=== PATIENT | female | born 1950 | race Caucasian/White ===

== ENCOUNTER 2017-09-04 13:11 | Inpatient (IN) | payer OTHER ==
[~2017-09-04] VITALS: Ht 165.1 cm; Wt 61.8 kg
[2017-09-04] MEDS ORDERED: SPIRIVA18 MCG INH (13:37)
[2017-09-04] MEDS ORDERED: ASMANEX220 MC2 (13:37)
[2017-09-04] MEDS ORDERED: LEVOTHYROXINE25 MCG PO (13:37)
--- NOTE | 2017-09-04 13:41 | ED DYSPNEA/ASTHMA COMPLAINT ---
History of Present Illness General Chief Complaint: Dyspnea (COPD, CHF, Other) Stated Complaint: SOB/LOWER EXTREMITY EDEMA Source: patient, family, old records Exam Limitations: no limitations Vital Signs & Intake/Output Vital Signs & Intake/Output Vital Signs Date Time Temp Pulse Resp B/P B/P Pulse O2 O2 Flow FiO2 Mean Ox Delivery Rate 09/04 1448 95 Nasal 3.0L Cannula 09/04 1338 96 26 96 Nasal 3.0L Cannula 09/04 1321 97.6 105 18 136/82 80 Room Air Allergies Coded Allergies: NO KNOWN ALLERGIES (09/13/11) Reconcile Medications Levothyroxine Sodium 25 MCG TABLET 1 TAB PO DAILY HYPOTHYROID (Reported) Mometasone Furoate (Asmanex) 220 MCG (60 DOSES) AER.POW.BA COPD (Reported) Tiotropium [place] (Spiriva) 18 MCG CAP.W.DEV 1 CAP INH DAILY COPD (Reported) Triage Note: 67 Y/O FEMALE C/O SOB AND BILATERAL LOWER EXTREMITY EDEMA SINCE LAST NIGHT. PT STATES SHE RECENTLY "GOT OVER FLU/PNEUMONIA BUT I BEGAN TO FEEL SLUGGISH AGAIN TUESDAY". STATES "I STARTED FILLING UP WITH FLUID LAST NIGHT". PT DENIES PAIN. REPORTS HX COPD AND IS SUPPOSED TO BE ON HOME 02 AT 2L - "MY DOCTOR PROBABLY WANTS ME ON IT ALL THE TIME". RA SAT 80% IN TRIAGE - PT DID NOT ARRIVE WITH HOME O2. TAKEN TO ROOM 7 FOR EVAL/TX. Triage Nurses Notes Reviewed? yes HPI: Patient presents with increasing shortness of breath, dyspnea on exertion and nonproductive cough. Patient also has pain to her left lower rib cage when she coughs. The pain is sharp. There is no pain when she is not coughing. There is no radiation of the pain. When she has the pain it is 8 out of 10. Patient is also noticed that both of her ankles have been swollen for the past 2 days. Patient does not know about orthopnea since she sleeps in a recliner. Patient is supposed to be on oxygen all the time but does not like to wear. Past History Travel History Traveled to [place] past 21 day No Medical History Any Pertinent Medical History? 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 No Review of Systems Review of Systems Constitutional: Reports: no symptoms. EENTM: Reports: no symptoms. Respiratory: Reports: see HPI, cough, short of breath, sputum production. Cardiovascular: Reports: see HPI, chest pain. GI: Reports: no symptoms. Genitourinary: Reports: no symptoms. Musculoskeletal: Reports: no symptoms. Skin: Reports: no symptoms. Neurological/Psychological: Reports: no symptoms. Hematologic/Endocrine: Reports: no symptoms. Immunologic/Allergic: Reports: no symptoms. All Other Systems: Reviewed and Negative Physical Exam Physical Exam General Appearance: well developed/nourished, alert, awake, anxious, moderate distress Head: atraumatic, normal appearance Eyes: Bilateral: PERRL, EOMI. Ears, Nose, Throat: normal pharynx, normal ENT inspection, hearing grossly normal Neck: normal inspection, supple, full range of motion Respiratory: decreased breath sounds, rhonchi Cardiovascular: regular rate/rhythm, normal peripheral pulses Gastrointestinal: normal bowel sounds, soft, non-tender Extremities: normal inspection, normal capillary refill, normal range of motion, pedal edema (TRACE) Neurologic/Psych: no motor/sensory deficits, awake, alert, oriented x 3, normal mood/affect Skin: intact, normal color, warm/dry Lymphatic: no anterior cervical lorena Core Measures ACS in differential dx? No CVA/TIA Diagnosis No Sepsis Present: No Sepsis Focused Exam Completed? No Progress Differential Diagnosis: AMI, bronchitis, CHF, COPD, pneumonia, pneumothorax Plan of Care: Orders Procedure Date/time Status Heart Healthy Diet 09/04 D Active XRY-PORTABLE CHEST XRAY 09/04 1458 Active US-COMPLETE ABDOMEN 09/04 1457 Active ARTERIAL BLOOD GAS (GEN) 09/04 1457 Active US-EXT BILAT VENOUS DOPPLER 09/04 1434 Active ED Holding Orders 09/04 1434 Active Admit to inpatient 09/04 1434 Active Vital Signs 09/04 1434 Active Code Status 09/04 1434 Active BLOOD CULTURE 09/04 1340 Active TROPONIN LEVEL 09/04 1316 Complete COMPREHENSIVE METABOLIC PANEL 09/04 1316 Complete CBC WITHOUT DIFFERENTIAL 09/04 131 Complete B-TYPE NATRIURETIC PEP (BNP) 09/04 1316 Complete EKG 09/04 1313 Active Current Medications Sig/Renee Start time Last Medication Dose Stop Time Status Admin Azithromycin 500 MG ONCE ONE 09/04 1445 AC (Zithromax) 09/04 1544 Dextrose/Water 250 ML (D5W) Laboratory Tests 09/04/17 1351: Anion Gap 7, Estimated GFR > 60, BUN/Creatinine Ratio 24.0, Glucose 82, Calcium 9.6, Total Bilirubin 0.9, AST 36, ALT 83 H, Alkaline Phosphatase 55, Troponin I < 0.01, Tor-H-Qtkbnhzabkv Pept 311 H, Total Protein 6.1 L, Albumin 3.5, Globulin 2.6, Albumin/Globulin Ratio 1.3, CBC w Diff NO MAN DIFF REQ, RBC 5.01, MCV 100.0 H, MCH 31.6 H, MCHC 31.6 L, RDW 15.4 H, MPV 9.5, Gran % 69.1, Lymphocytes % 19.6 L, Monocytes % 9.1, Eosinophils % 2.1, Basophils % 0.1, Absolute Granulocytes 4.4, Absolute Lymphocytes 1.3, Absolute Monocytes 0.6, Absolute Eosinophils 0.1, Absolute Basophils 0 Microbiology 09/04 135 BLOOD: Blood Culture - RECD 09/05 1339 BLOOD: Blood Culture - ORD Diagnostic Imaging: Viewed by Me: Radiology Read, Ultrasound. Discussed w/RAD: Radiology Read, Ultrasound. Initial ED EKG: NSR, LAFB Prior EKG: unchanged Rhythm Strip: normal sinus rhythm Departure Departure Disposition: STILL A PATIENT Condition: Stable Clinical Impression Primary Impression: COPD exacerbation Referrals: Gutierrez Holden ZABALA (PCP/Family) Departure Forms: Customer Survey General Discharge Information Admission Note Spoke With: Rene ZABALA,Alan Diaz Documentation of Exam: Documentation of any treatments & extenuating circumstances including Concerns Regarding Discharge (functional status, medication knowledge or non-compliance, living conditions, etc.) that warrant an admission rather than observation: [ PULM CONSULT, NEBS, IV STEROIDS, IV ABX, NEBS, ULTRASOUND] Critical Care Note Critical Care Note Critical Care Time: non-applicable
[2017-09-04 13:59] LABS: ABSOLUTE BASOPHIL COUNT 0 /CUMM (0.0-0.2); ABSOLUTE EOSINOPHIL COUNT 0.1 /CUMM (0.0-0.7); ABSOLUTE GRANULOCYTE CT 4.4 /CUMM (1.4-6.5); ABSOLUTE LYMPH COUNT 1.3 /CUMM (1.2-3.4); ABSOLUTE MONOCYTE COUNT 0.6 /CUMM (0.10-0.60); BASOPHIL % 0.1 % (0.0-2.0); EOSINOPHIL % 2.1 % (0-5); GRANULOCYTE % 69.1 % (42.2-75.2); HEMATOCRIT 50.1 % (37-47); MEAN CORPUSCULAR HGB 31.6 PG (27.0-31.0); MEAN CORPUSCULAR HGB CONC 31.6 G/DL (33.0-37.0); MEAN PLATELET VOLUME 9.5 FL (7.4-10.4); RBC DISTRIBUTION WIDTH 15.4 % (11.5-14.5); RED BLOOD CELL CT 5.01 /CUMM (4.20-5.40); WHITE BLOOD CELL COUNT 6.4 /CUMM (4.8-10.8)
--- NOTE | 2017-09-04 14:53 | PN- Att Addend ---
Attending Addendum Attending Brief Note Patient presents with increasing shortness of breath, dyspnea on exertion and nonproductive cough. Patient also has pain to her left lower rib cage when she coughs. The pain is sharp. There is no pain when she is not coughing. There is no radiation of the pain. When she has the pain it is 8 out of 10. Patient is also noticed that both of her ankles have been swollen for the past 2 days. Patient does not know about orthopnea since she sleeps in a recliner. Patient is supposed to be on oxygen all the time but does not like to wear. Has severe end-stage COPD with chronic hypercarbia. Unfortunately she does continue to smoke. She is supposed to be on 3 L of nasal cannula but she is noncompliant. She has yellow-green sputum and has been unable to bring up some sputum. She has lower extremity edema and she seems to have mild ascites as well as suggestive of significant right heart failure. No fever, but patient has been on and off steroids in the recent past. Past History Travel History Traveled to [place] past 21 day No Medical History Any Pertinent Medical History? 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 No Review of Systems Review of Systems Constitutional: Reports: no symptoms. EENTM: Reports: no symptoms. Respiratory: Reports: see HPI, cough, short of breath, sputum production. Cardiovascular: Reports: see HPI, chest pain. GI: Reports: no symptoms. Genitourinary: Reports: no symptoms. Musculoskeletal: Reports: no symptoms. Skin: Reports: no symptoms. Neurological/Psychological: Reports: no symptoms. Hematologic/Endocrine: Reports: no symptoms. Immunologic/Allergic: Reports: no symptoms. All Other Systems: Reviewed and Negative Physical Exam Physical Exam General Appearance: well developed/nourished, alert, awake, anxious, moderate distress Head: atraumatic, normal appearance Eyes: Bilateral: PERRL, EOMI. Ears, Nose, Throat: normal pharynx, normal ENT inspection, hearing grossly normal Neck: normal inspection, supple, full range of motion Respiratory: decreased breath sounds, rhonchi Cardiovascular: regular rate/rhythm, normal peripheral pulses Gastrointestinal: normal bowel sounds, soft, non-tender Extremities: normal inspection, normal capillary refill, normal range of motion, pedal edema (TRACE) Neurologic/Psych: no motor/sensory deficits, awake, alert, oriented x 3, normal mood/affect Skin: intact, normal color, warm/dry Lymphatic: no anterior cervical lorena Current Medications Sig/Renee Start time Last Medication Dose Route Stop Time Status Admin Azithromycin 500 MG ONCE ONE 09/04 144 UNVr Dextrose/Water 250 ML IV 09/04 1544 Ceftriaxone Sodium 1,000 MG ONCE ONE 09/04 144 AC IV 09/04 144 Methylprednisolone 125 MG ONCE ONE 09/04 144 UNVr IV 09/04 144 Vital Signs Date Time Temp Pulse Resp B/P B/P Pulse O2 O2 Flow FiO2 Mean Ox Delivery Rate 09/04 1338 96 26 96 Nasal 3.0L Cannula 09/04 1321 97.6 105 18 136/82 80 Room Air Laboratory Tests 09/04/17 1351: Anion Gap 7, Estimated GFR > 60, BUN/Creatinine Ratio 24.0, Glucose 82, Calcium 9.6, Total Bilirubin 0.9, AST 36, ALT 83 H, Alkaline Phosphatase 55, Troponin I < 0.01, Ecz-V-Ncxnhakmfas Pept 311 H, Total Protein 6.1 L, Albumin 3.5, Globulin 2.6, Albumin/Globulin Ratio 1.3, CBC w Diff NO MAN DIFF REQ, RBC 5.01, MCV 100.0 H, MCH 31.6 H, MCHC 31.6 L, RDW 15.4 H, MPV 9.5, Gran % 69.1, Lymphocytes % 19.6 L, Monocytes % 9.1, Eosinophils % 2.1, Basophils % 0.1, Absolute Granulocytes 4.4, Absolute Lymphocytes 1.3, Absolute Monocytes 0.6, Absolute Eosinophils 0.1, Absolute Basophils 0 Microbiology Date/Time Procedure - Status Source Growth 09/04 1350 Blood Culture - RECD BLOOD Orders Procedure Date/time Status Heart Healthy Diet 09/04 D Active US-EXT BILAT VENOUS DOPPLER 09/04 1434 Active ED Holding Orders 09/04 1434 Active Admit to inpatient 09/04 1434 Active Vital Signs 09/04 1434 Active Code Status 09/04 1434 Active BLOOD CULTURE 09/04 1340 Active TROPONIN LEVEL 09/04 1316 Complete COMPREHENSIVE METABOLIC PANEL 09/04 1316 Complete CBC WITHOUT DIFFERENTIAL 09/04 1316 Complete B-TYPE NATRIURETIC PEP (BNP) 09/04 1316 Complete EKG 09/04 1313 Active IMPRESSION This is a lady with very severe endstage COPD with chronic respiratory failure mainly hypercarbic with significantly elevated baseline bicarbonate with more emphysema than bronchitis, prior history of prolonged hospitalization with respiratory failure, ongoing smoking with marijuana use, history of previous alcohol use, medication noncompliance, now comes in with * Acute COPD exacerbation with chronic hypercarbic respiratory failure * Acute cor pulmonale on top of chronic cor pulmonale with pedal edema with right heart dysfunction, ascites * Ongoing smoking and previous history of marijuana use * Significant erythrocytosis related to prolonged hypoxemia due to noncompliance with oxygen therapy * Thrombocytopenia probably related to congestive liver from her cor pulmonale. She does have erythrocytosis which needs to be investigated * Previous history of lung nodule which had been followed for years with benign findings. Patient is not a candidate for screening CT due to end-stage COPD * Hypothyroidism on appropriate supplementation, anxiety, mild depression * COPD cachexia with high LUCRETIA score with poor prognosis RECOMMENDATION Admit to the hospital Intravenous steroids with 60 mg Solu-Medrol every 12 and subsequently reduced to 60 daily Ceftriaxone and azithromycin intravenously Chest x-ray and if abnormal will consider a chest ct Ultrasound of lower ext and abd EKG ABG IV lasix 20 mg and po kcl 40 meq now Rule out OR Urinary antigens Swab for flu Check tsh, free t4, folate, b12 level Prog guarded REduce oxygen to keep sat at 90 to 92 PRog guarded
--- NOTE | 2017-09-04 15:14 | History & Physical ---
Elle ZABALAAdair 09/04/17 1514: General Information and HPI History of Present Illness: Ms. Patino is a 67-year-old female with past medical history of COPD who presents with shortness of breath and leg swelling. The patient is followed by Dr. López. For the past 3 weeks, the patient has been sick with influenza. She saw Dr. López and he prescribed 2 medications that she does not remember. Over this time she had shortness of breath, cough, sore throat, fevers, chills, and fatigue. She continued a course of treatment for several weeks. She is noncompliant with her oxygen therapy. However, late this week she had to stay home from work to use oxygen all day because she was not feeling well. She also began noticing that her ankles were swelling on Tuesday. She became she came to the hospital today because of her ankle swelling in addition to her shortness of breath. She denies any chest pain, palpitations, bowel pain, nausea, vomiting, diarrhea, or dysuria. She is a current smoker on and off though she has not smoked in a couple weeks. She also smokes marijuana. She denies any alcohol use. She lives alone with a cat. Allergies/Medications Allergies: Coded Allergies: NO KNOWN ALLERGIES (09/13/11) Home Med list Levothyroxine Sodium 25 MCG TABLET 1 TAB PO DAILY HYPOTHYROID (Reported) Mometasone Furoate (Asmanex) 220 MCG (60 DOSES) AER.POW.BA COPD (Reported) Tiotropium [place] (Spiriva) 18 MCG CAP.W.DEV 1 CAP INH DAILY COPD (Reported) Past History Travel History Traveled to [place] past 21 day No Medical History Neurological: NONE EENT: NONE Cardiovascular: NONE Respiratory: COPD Gastrointestinal: NONE Hepatic: NONE Renal: NONE Musculoskeletal: NONE Psychiatric: NONE Endocrine: NONE Blood Disorders: NONE Cancer(s): 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 EENTM: Reports: no symptoms. Cardiovascular: Reports: see HPI. Respiratory: Reports: see HPI. GI: Reports: no symptoms. Genitourinary: Reports: no symptoms. Musculoskeletal: Reports: no symptoms. Skin: Reports: no symptoms. Neurological/Psychological: Reports: no symptoms. Hematologic/Endocrine: Reports: no symptoms. Immunologic/Allergic: Reports: no symptoms. All Other Systems: Reviewed and Negative Exam & Diagnostic Data Last 24 Hrs of Vital Signs/I&O Vital Signs Date Time Temp Pulse Resp B/P B/P Pulse O2 O2 Flow FiO2 Mean Ox Delivery Rate 09/04 1700 98.2 97 20 132/81 97 Nasal 2.0L Cannula 09/04 1549 87 18 141/78 96 Nasal 3.0L Cannula 09/04 1448 95 Nasal 3.0L Cannula 09/04 1338 96 26 96 Nasal 3.0L Cannula 09/04 1321 97.6 105 18 136/82 80 Room Air Intake & Output 09/04 1600 09/04 0800 09/04 0000 Intake Total Output Total Balance Patient 58.513 kg Weight Weight Reported by Patient Measurement Method Physical Exam General Appearance Alert, Oriented X3, Cooperative, No Acute Distress HEENT Atraumatic Cardiovascular Regular Rate, Normal S1, Normal S2, JVD to 9cm above clavicle Lungs crackles and wheezing bilaterally Abdomen Normal Bowel Sounds, Soft, No Tenderness Extremities 3+ pitting edema bilaterally Last 24 Hrs of Labs/Lenn[place]: Laboratory Tests 09/04/17 1351: Anion Gap 7, Estimated GFR > 60, BUN/Creatinine Ratio 24.0, Glucose 82, Calcium 9.6, Total Bilirubin 0.9, AST 36, ALT 83 H, Alkaline Phosphatase 55, Troponin I < 0.01, Hrd-J-Pxsqziyzcsq Pept 311 H, Total Protein 6.1 L, Albumin 3.5, Globulin 2.6, Albumin/Globulin Ratio 1.3, CBC w Diff NO MAN DIFF REQ, RBC 5.01, MCV 100.0 H, MCH 31.6 H, MCHC 31.6 L, RDW 15.4 H, MPV 9.5, Gran % 69.1, Lymphocytes % 19.6 L, Monocytes % 9.1, Eosinophils % 2.1, Basophils % 0.1, Absolute Granulocytes 4.4, Absolute Lymphocytes 1.3, Absolute Monocytes 0.6, Absolute Eosinophils 0.1, Absolute Basophils 0 Microbiology 09/04 1547 BLOOD: Blood Culture - RECD 09/04 135 BLOOD: Blood Culture - RECD Assessment/Plan Assessment: Ms. Patino is a 67-year-old female with past medical history of COPD who presents with shortness of breath and leg swelling. On presentation, vital signs were T 97.6, HR 105, RR 18, BP 136/82, saturating 80% on room air. This improved to 96% on 3 L nasal cannula. Laboratories were significant for platelets 89, hematocrit 50.1, MCV 100.0, chloride 95, come dioxide 40, BNP 311. She was treated with methylprednisone, ceftriaxone, and azithromycin in the emergency room. She'll be admitted to general medicine and treated for the following problems: 1. Acute hypoxic respiratory failure 2. Likely acute decompensated heart failure 3. COPD exacerbation 4. Thrombocytopenia #Acute hypoxic respiratory failure: The patient is recently been sick was also presenting with positive JVD and significant swelling consistent with heart failure. She likely also has an element of COPD exacerbation. -I's and O's, daily weights -IV furosemide -IV methylprednisone -EKG and troponins 3 -Influenza swab -Urinary antigens -Consider TTE and cardiology consult -CT chest without contrast #Thrombocytopenia: Likely reactive. -Continue to monitor for bleeding #Chronic medical problems: -Continue home medications DVT prophylaxis with enoxaparin CHF diet Full code As Ranked By This Provider Problem List: 1. COPD exacerbation Core Measures/Misc (02/13) Acute Coronary Syndrome ACS Diagnosis: No Congestive Heart Failure Congestive Heart Failure Diagnosis Yes Cerebrovascular Accident CVA/TIA Diagnosis: No VTE (View Protocol) VTE Risk Factors Age>40 No Mechanical VTE Prophylaxis d/t N/A MechProphylax Ordered No VTE Pharm Prophylaxis d/t NA PharmProphylax ordered Sepsis (View protocol) Sepsis Present: No [facility] 09/04/171952: Resident Review Statement Resident Statement: examined this patient, discussed with internet application developer, agreed with internet application developer, discussed with family Other Findings: 67-year-old woman with a past medical history of COPD on 3 L of home oxygen presents with a three-week history of worsening shortness of breath and generalized weakness with a one-week history of leg swelling cough productive of greenish sputum and sore throat. She states that she had been diagnosed with influenza 3 weeks ago and completed treatment. Patient is noncompliant with home oxygen and also intermittently smokes. Has been intermittently using steroids in the recent past. Patient was significantly hypoxic to 80% on room air on presentation. Peak exam significant for elevated JVD and bilateral pitting pedal edema +3. Doppler ultrasound on presentation negative for DVT and chest CT shows moderate emphysema but no consolidation/opacity. She was admitted for treatment of COPD exacerbation with cor pulmonale and treated with IV bronchodilator nebulizers and IV steroids. In addition she will be gently diuresed with IV Lasix 20 mg as needed to manage edema. Underlying infectious process likely will need to be ruled out and she will be tested for rapid flu, strep pneumo urinary antigen and sputum and blood cultures. In addition she'll be ruled out for an acute coronary event with serial EKGs and troponins.
--- NOTE | 2017-09-04 15:57 | ULTRASOUND REPORT ---
EXAMINATION: US TRIPLEX OF LOWER EXTREMITIES, BILATERAL CLINICAL INFORMATION: Edema swelling COMPARISON: None TECHNIQUE: Color-flow triplex imaging with spectral analysis and compression Doppler were performed on the lower extremities. FINDINGS: Respiratory variation, normal compression and augmented flow are noted throughout the lower extremities. The visualized common femoral vein, superficial femoral vein, profunda femoral vein, popliteal vein and midcalf peroneal and posterior tibial venous segments show no evidence of deep venous thrombosis. There is no Borrego's cyst. IMPRESSION: Normal triplex scan without evidence of deep venous thrombosis involving the lower extremities.
--- NOTE | 2017-09-04 15:59 | ULTRASOUND REPORT ---
EXAMINATION: US ABDOMEN COMPLETE CLINICAL INFORMATION: ascites. COMPARISON: 2009 TECHNIQUE: Real-time imaging of the abdominal viscera. FINDINGS: PANCREAS: Normal. ABDOMINAL AORTA: The proximal segment is normal in caliber. INFERIOR VENA CAVA: Visualized portions are normal. LIVER: Normal. The liver demonstrates normal size, contour and echogenicity. No focal lesion or intrahepatic biliary duct dilatation. GALLBLADDER: Normal. The gallbladder is physiologically distended without evidence of stones, sludge, polyps, wall thickening or pericholecystic fluid. COMMON BILE DUCT: Normal in caliber measuring 0.4 cm in diameter. RIGHT KIDNEY: Normal. No hydronephrosis. No renal calculi or focal parenchymal lesions. The kidney measures 10.5 cm in maximum dimension. Simple cyst lower pole measure 3 x 2.8 x 3.2 cm LEFT KIDNEY: Normal. No hydronephrosis. No renal calculi or focal parenchymal lesions. The kidney measures 10.3 cm in maximum dimension. SPLEEN: Normal. The spleen measures 7.8 cm in maximum dimension. FREE FLUID: None. IMPRESSION: Simple cyst RIGHT kidney exam otherwise normal.
--- NOTE | 2017-09-04 16:17 | RADIOLOGY REPORT ---
EXAMINATION: XR PORTABLE CHEST CLINICAL INFORMATION: Cough and shortness of breath. COMPARISON: Chest radiography 05/27/2017. TECHNIQUE: Portable frontal view of the chest was obtained. FINDINGS: The lungs are hyperexpanded. Mild streaky opacification in the retrocardiac left lower lung. No other parenchymal opacification, pulmonary edema, pleural effusion, or pneumothorax. Mediastinal contours have not significantly changed. No acute osseous abnormalities. IMPRESSION: Mild streaky opacification in the retrocardiac left lower lung, likely representing a degree of atelectasis with/without other subtle parenchymal consolidation.
[2017-09-04 17:53] VITALS: BP 140/80
--- NOTE | 2017-09-04 19:08 | PN- Student ---
Subjective Subjective: Ms. Patino is a 67 year old female with a pmhx of COPD, Parathyroid Goiter, and Chronic sinusitis who presented to the ED today with bilateral leg swelling, SOB and dry cough. She has been being followed by Dr. Jade for her shortness of breath and sore throat for the past month, and has been being treated for suspected influenza with 2 medications she could not recall. She reports that last month her symptoms started with flu-like symptoms that progressively got worse. She had to take off from work for these symptoms and went back to work 08/30/17. She states that from 08/30-09/01 she felt lethargic just from walking back and forth to her car during this time period. On Saturday 09/02 she did not go in to work due to trouble breathing and states that it felt like she was "breathing with a plastic bag over her head". Although she has been noncompliant with her oxygen therapy she did use 2L O2 nasal canula Tuesday and Tuesday before coming to the ED today. She added that she noticed her legs swelling up tuesday and tuesday, and needing to sleep in a recliner chair with her head up. She reports a diet rich in sodium as she has not had the energy to go grocery shopping. She denies any chest pain, palpatations, chest tightness, n/v, abdominal pain, or dysuria. She does report a chronic band like headache. PMHx: COPD, Parathyroid goiter, Chronic Sinusitis Surgical Hx: Apenectomy as a child, Rhinoplasty for deviated septum, parathyroid /thyroidectomy Fam Hx: Father: 77 Mesothelioma Mother: 52 Cerebral hemorrhage, Rheumatic heart disease Sister: 70 living, HTN Brother: 69 living, in apparent good health Sister: 58 living, HTN Daughter: 27, healthy Allergies: NKDA Home Medications: Levothyroxine 25 mcg QD Spiriva 18 mcg inh daily q am Asmanex 220 mcg 60 BID Albuterol rescue inhaler PRN Albuterol nebulizer treatment PRN Medications ED: Methylprednisone 125 mg IV Azithromycin 500 mg IV D5W 250 mL IV Potassium chlorate 40 meq PO once Furosemide 20 mg PO once Ceftriazone 1,000 mg IV Enoxaparin 40 mg daily SC Objective Objective: Vital Signs Date Time Temp Pulse Resp B/P B/P Pulse O2 O2 Flow FiO2 Mean Ox Delivery Rate 09/04 1752 98.9 95 20 140/80 91 Nasal Cannula 09/04 1700 98.2 97 20 132/81 97 Nasal 2.0L Cannula 09/04 1549 87 18 141/78 96 Nasal 3.0L Cannula 09/04 1448 95 Nasal 3.0L Cannula 09/04 1338 96 26 96 Nasal 3.0L Cannula 09/04 1321 97.6 105 18 136/82 80 Room Air Last 24 Hours I&Os 09/04 1600 09/04 0800 09/04 0000 Intake Total Output Total Balance Patient 129 lb Weight Weight Reported by Patient Measurement Method Laboratory Tests 09/04/17 1351: Anion Gap 7, Estimated GFR > 60, BUN/Creatinine Ratio 24.0, Glucose 82, Calcium 9.6, Total Bilirubin 0.9, AST 36, ALT 83 H, Alkaline Phosphatase 55, Troponin I < 0.01, [id number] Pept 311 H, Total Protein 6.1 L, Albumin 3.5, Globulin 2.6, Albumin/Globulin Ratio 1.3, Vitamin B12 Pending, TSH Pending, Free T4 Pending, CBC w Diff NO MAN DIFF REQ, RBC 5.01, MCV 100.0 H, MCH 31.6 H, MCHC 31.6 L, RDW 15.4 H, MPV 9.5, Gran % 69.1, Lymphocytes % 19.6 L, Monocytes % 9.1, Eosinophils % 2.1, Basophils % 0.1, Absolute Granulocytes 4.4, Absolute Lymphocytes 1.3, Absolute Monocytes 0.6, Absolute Eosinophils 0.1, Absolute Basophils 0 Microbiology Date/Time Procedure - Status Source Growth 09/04 1754 Legionella Antigen - ORD URINE ROUT 09/04 1754 Streptococcus pneumoniae Antigen (M - ORD URINE ROUT 09/04 1754 Influenza Virus A & B Rapid Smear - ORD NASOPHARYN 09/04 1547 Blood Culture - RECD BLOOD Orders Procedure Date/time Status CHF Diet 09/05 B Active TROPONIN LEVEL 09/050 Active EKG 09/05 199 Active Heart Healthy Diet 09/04 D Complete TROPONIN LEVEL 09/05 1999 Active EKG 09/05 1999 Active RAPID VIRAL INFLUENZA A 09/04 175 Active STREP PNEUMO URINARY ANTIGEN 09/04 1754 Active LEGIONELLA URINARY ANTIGEN 09/04 175 Active Weight 09/04 1730 Active Vital Signs 09/04 1730 Active Teach/Educate 09/04 1730 Active Pain Treatment and Response 09/04 173 Active Nutritional Intake, Monitor 09/04 1730 Active Isolation 09/04 1730 Active Intake & Output 09/04 1730 Active Patient Care Conference 09/04 1730 Active Activity/Ambulation 09/04 1730 Active Patient Data 09/04 1516 Active ARTERIAL BLOOD GAS (GEN) 09/04 1457 Active Intake & Output 09/04 1448 Active ED Holding Orders 09/04 1434 Active Admit to inpatient 09/04 1434 Active Vital Signs 09/04 1434 Active Code Status 09/04 1434 Active THYROID STIMULATING HORMONE 09/04 1351 Active FREE T4 09/04 1351 Active VITAMIN B12 09/04 1351 Active BLOOD CULTURE 09/04 1340 Active TROPONIN LEVEL 09/04 1316 Active COMPREHENSIVE METABOLIC PANEL 09/04 1316 Active CBC WITHOUT DIFFERENTIAL 09/04 1316 Complete B-TYPE NATRIURETIC PEP (BNP) 09/04 1316 Active EKG 09/04 1313 Active Lab Add-on Test 09/[address] CHEST WO IV CONTRAST 09/04 UNK Active PE: Gen apperance: No acute distress, cooperative, AOx3 CBV: Reg rate/rhythym, normal S1&S2, JVD 9 cm above clav Pulm: crackles and wheeze bilaterally Abd: non-tender, soft, normal bowel sounds Peripheral pulses: bilateral radial 2+, dorsal pedis 2+, posterior tibal 2+ Extremities: Edema 2+ Assessment/Plan Assessment: Ms. Dai is a 67 year old female with a pmhx significant for COPD, presented to the ED today with increasing SOB, nonproductive cough, and lower extremity edema bilaterally. She also reports chest spasms when coughing in her lower ribs. She has had to sleep in a reclining chair sitting up for the past few days as well as edema in her legs bilaterally. She adds that she has been eating a diet rich in sodium lately due to being unable to have the energy to grocery shop. She denies any chest pain, tightness, palpatations, abdominal pain, n/v or dysuria. She reports being treated for possible influenza for the past [address] Jade. She has recieved theraflu but could not recall the abx she was on. Plan: Problem list: 1. CHF 2. COPD exacerbation 3. ongoing medical conditions #CHF: Patient likely suffering form flash CHF as she has had a recent change in diet that is high in sodium. Coupled with the fact that she has lower limb edema and an elevated JVD she most likely has Right sided heart failure. This is further supported by her history of sleeping in the reclining chair with her head up, dyspnea on exertion and lethargy. A likely contributing factor is due to her long standing COPD and likely chronic hypoxic state. Unlikely that this is a result of an GA that is causing myocardial dysfunction as she denies any chest pain. -EKG -Troponin, Ck-MB -Lasixs -Oxygen 2L nasal canula -Cardiology consult -Echocardiogram to determine EF #COPD exacerbation: Prior to her lower leg swelling, Ms. Patino reports feeling SOB and a nonproductive cough. It is possible that influenza percipitated this and could have lead to a opportunistic bacterial infection as well. Chest X-Ray was read and shows mild streaky opacification in the retrocardiac left lower lung, likely representing a degree of atelectasis with/without other subtle parenchymal consolidation. On PE wheezes and crackles could be heard bilaterally throughout the posterior lung alonso. -IV methylprednisone -F/u on possible abx therapy from Dr. Jade -consider Azithromycin IV -consider ABG #Ongoing medical condition -continue all home medications DVT ppx: Enoxaparin Heart healthy diet low sodium full code
[2017-09-04 22:26] VITALS: BP 138/80
--- NOTE | 2017-09-04 22:56 | CT SCAN REPORT ---
EXAMINATION: CT CHEST WITHOUT CONTRAST CLINICAL INFORMATION: Normal chest radiograph. Shortness of breath with respiratory failure. COMPARISON: Chest CT 11/19/2012. Chest radiograph from earlier today. TECHNIQUE: Multidetector volumetric CT imaging of the chest was done. Axial MIP volume rendering provided. Sagittal and coronal reformatted images were obtained. DLP: 216 mGy-cm FINDINGS: LUNGS: The central airways are patent with minimal dependent secretions in the mainstem bronchi. There is moderate centrilobular and paraseptal emphysema. Biapical pleural thickening/scarring. Scattered bronchial filling defects are noted. There is bibasilar subsegmental atelectasis. There is no dense consolidation. No pleural effusion or pneumothorax. Pulmonary nodules are noted. 1. Left lower lobe 0.4 cm nodule, series 4 image 355. Not definitively seen on prior, although only thick slice imaging was available. 2. Left lower lobe 0.4 cm nodule, series 4 image 364. Not definitively seen on prior, although only thick slices imaging was available. MEDIASTINUM: The heart is normal in size. No pericardial effusion. No mediastinal lymphadenopathy. There is chronic calcifications are noted. AXILLA: No lymphadenopathy. UPPER ABDOMEN: Unremarkable. OSSEOUS STRUCTURES: No acute or suspicious osseous abnormality. Degenerative changes of the spine. IMPRESSION: 1. Moderate emphysema. There is also likely a component of chronic bronchitis with multiple bronchial filling defects noted. Superimposed acute small airways process not excluded. 2. No consolidation. Minimal bibasilar atelectasis. 3. 0.4 cm left lower lobe pulmonary nodules. Consider 12 month follow-up chest CT.
[2017-09-05 05:49] VITALS: BP 116/70
--- NOTE | 2017-09-05 07:50 | PN- Housestaff ---
Subjective Follow-up For: Strep pneumo, flu Subjective: No overnight events. The patient's breathing has improved overnight. She also reports being frequently and reduce leg swelling. No chest pain or other complaints. Review of Systems Constitutional: Reports: no symptoms. EENTM: Reports: no symptoms. Cardiovascular: Reports: see HPI. Respiratory: Reports: see HPI. Gastrointestinal: Reports: no symptoms. Genitourinary: Reports: no symptoms. Musculoskeletal: Reports: no symptoms. Skin: Reports: no symptoms. Neurological/Psychological: Reports: no symptoms. Hematologic/Endocrine: Reports: no symptoms. Immunologic/Allergic: Reports: no symptoms. Objective Last 24 Hrs of Vital Signs/I&O Vital Signs Date Time Temp Pulse Resp B/P B/P Pulse O2 O2 Flow FiO2 Mean Ox Delivery Rate 09/05 0549 98.2 73 20 116/70 90 Room Air 09/05 0000 Nasal 2.5L Cannula 09/04 2226 98.3 87 20 138/80 90 Nasal Cannula 09/04 1948 Nasal 3.0L Cannula 09/04 1800 94 Nasal 3.0L Cannula 09/04 1753 98.9 95 20 140/80 91 Nasal Cannula 09/04 1700 98.2 97 20 132/81 97 Nasal 2.0L Cannula 09/04 1549 87 18 141/78 96 Nasal 3.0L Cannula 09/04 1448 95 Nasal 3.0L Cannula 09/04 1338 96 26 96 Nasal 3.0L Cannula 09/04 1321 97.6 105 18 136/82 80 Room Air Intake & Output 09/05 0800 09/05 0000 09/04 1600 Intake Total 480 Output Total Balance 480 Intake, Oral 480 Patient 58.513 kg 58.513 kg Weight Weight Reported by Patient Reported by Patient Measurement Method Physical Exam General Appearance: Alert, Oriented X3, Cooperative, No Acute Distress Cardiovascular: Regular Rate, Normal S1, Normal S2 Lungs: mild crackles at base Abdomen: Normal Bowel Sounds, Soft, No Tenderness Extremities: 1+ pitting edema Current Medications: Current Medications Sig/Renee Start time Last Medication Dose Route Stop Time Status Admin Acetaminophen 650 MG Q6P PRN 09/05 0745 UNVr PO Albuterol Sulfate 3 ML TID 09/04 2200 AC 09/04 INH 1905 Azithromycin 500 MG DAILY@1500 09/05 1500 AC Dextrose/Water 250 ML IV Azithromycin 500 MG ONCE ONE 09/04 1445 DC 09/04 Dextrose/Water 250 ML IV 09/04 1544 1553 Ceftriaxone Sodium 1,000 MG DAILY@1530 09/05 1530 AC IV Ceftriaxone Sodium 0 .STK-MED ONE 09/04 1453 DC .ROUTE Ceftriaxone Sodium 1,000 MG ONCE ONE 09/04 1445 DC 09/04 IV 09/04 1446 1553 Enoxaparin Sodium 40 MG DAILY 09/05 1000 AC SC Furosemide 40 MG .STK-MED ONE 09/04 2029 DC IV 09/04 2030 Furosemide 20 MG ONCE ONE 09/04 1800 DC 09/04 IV 09/04 1801 2151 Methylprednisolone 60 MG DAILY@09/05 AC IV 09/07 2200 Methylprednisolone 60 MG Q12 09/04 2199 DC IV 09/08 215 Methylprednisolone 60 MG Q12 09/04 2199 AC 09/04 IV 09/05 1001 2152 Methylprednisolone 0 .STK-MED ONE 09/04 1452 DC .ROUTE Methylprednisolone 125 MG ONCE ONE 09/04 1445 DC 09/04 IV 09/04 1446 1452 Potassium Chloride 40 MEQ ONCE ONE 09/04 1800 DC 09/04 PO 09/04 1801 203 Last 24 Hrs of Lab/Lennox Results Last 24 Hrs of Labs/Mics: Laboratory Tests 09/05/17 0220: Troponin I < 0.01 09/04/172034: Troponin I < 0.01 09/04/17 1900: pH 7.33 L, pCO2 68 *H, pO2 64 L, HCO3 35 H, ABG O2 Sat (Measured) 88.0 L, P- 50 (Temp Corrected) N, Carboxyhemoglobin 3.0, O2 Concentration % 3L, Temperature 98.9, O2 Delivery Method NC, Phlebotomy Draw Site RIGHT BRACHIAL 09/04/17 1351: Anion Gap 7, Estimated GFR > 60, BUN/Creatinine Ratio 24.0, Glucose 82, Calcium 9.6, Total Bilirubin 0.9, AST 36, ALT 83 H, Alkaline Phosphatase 55, Troponin I < 0.01, [id number] Pept 311 H, Total Protein 6.1 L, Albumin 3.5, Globulin 2.6, Albumin/Globulin Ratio 1.3, Vitamin B12 > 1000 H, TSH 0.813, Free T4 1.68, CBC w Diff NO MAN DIFF REQ, RBC 5.01, MCV 100.0 H, MCH 31.6 H, MCHC 31.6 L, RDW 15.4 H, MPV 9.5, Gran % 69.1, Lymphocytes % 19.6 L, Monocytes % 9.1, Eosinophils % 2.1, Basophils % 0.1, Absolute Granulocytes 4.4, Absolute Lymphocytes 1.3, Absolute Monocytes 0.6, Absolute Eosinophils 0.1, Absolute Basophils 0 Microbiology 09/04 2129 URINE ROUT: Legionella Antigen - COMP 09/04 2129 URINE ROUT: Streptococcus pneumoniae Antigen (M - COMP STREP PNEUMO BACTERIAL AG 09/04 184 NASOPHARYN: Influenza Virus A & B Rapid Smear - COMP INFLUENZA TYPE A 09/04 1547 BLOOD: Blood Culture - RECD 09/04 1350 BLOOD: Blood Culture - RECD Assessment/Plan Assessment: Ms. Patino is a 67-year-old female with past medical history of COPD who presents with shortness of breath and leg swelling. Problem list: 1. Acute hypoxic respiratory failure 2. Likely acute decompensated heart failure 3. Streptococcus pneumoniae pneumonia 4. Influenza A 5. Thrombocytopenia #Acute hypoxic respiratory failure: The patient is recently been sick was also presenting with positive JVD and significant swelling consistent with heart failure. This is complicated by, and possibly precipitated by, influenza A infection with superimposed pneumonia. EKG and troponins x3 have been negative. Chest CT showed moderate emphysema and is 0.4 cm left lower lobe pulmonary nodule. -I's and O's, daily weights -IV furosemide -IV methylprednisone -TTE and cardiology consult -CT chest without contrast -Ceftriaxone and azithromycin -Oseltamivir #Thrombocytopenia: Likely reactive. -Continue to monitor for bleeding #Chronic medical problems: -Continue home medications DVT prophylaxis with enoxaparin CHF diet Full code Problem List: 1. Streptococcus pneumoniae 2. Influenza A Pain Ratin Pain Location: no Pain Goal: Remain pain free Pain Plan: see a/p Tomorrow's Labs & Rationales: cbc, bep
--- NOTE | 2017-09-05 12:20 | Cons- Cardiology ---
General Information and HPI Consulting Request Date of Consult: 09/05/17 Requested By: Rene ZABALA,Alan Diaz Reason for Consult: Lower extremity edema Source of Information: patient, old records History of Present Illness: This is a 67-year-old female with a history of end-stage COPD who presented to [facility] with a chief complaint of nonproductive cough along with sharp chest pain exacerbated by coughing; no associated palpitations; she does note increasing lower extremity edema and admits to some recent dietary indiscretion as she was more recently eating some packaged foods at home with high salt content; admits that she only wears her oxygen at home at certain times as it does irritate her nostrils; denies any dizziness, slurring of speech, focal neurologic deficits, or syncope. did have some recent increase in her acute dyspnea but this was not associated with any exertional chest pain. Allergies/Medications Allergies: Coded Allergies: NO KNOWN ALLERGIES (09/13/11) Home Med List: Levothyroxine Sodium 25 MCG TABLET 1 TAB PO DAILY HYPOTHYROID (Reported) Mometasone Furoate (Asmanex) 220 MCG (60 DOSES) AER.POW.BA COPD (Reported) Tiotropium Center (Spiriva) 18 MCG CAP.W.DEV 1 CAP INH DAILY COPD (Reported) Current Medications: Current Medications Sig/Renee Start time Last Medication Dose Route Stop Time Status Admin Acetaminophen 650 MG Q6P PRN 09/05 0745 AC PO Albuterol Sulfate 3 ML TID 09/04 2200 AC 09/05 INH 0904 Azithromycin 500 MG DAILY@1500 09/05 1500 AC Dextrose/Water 250 ML IV Azithromycin 500 MG ONCE ONE 09/04 1445 DC 09/04 Dextrose/Water 250 ML IV 09/04 1544 1553 Ceftriaxone Sodium 1,000 MG DAILY@1530 09/05 1530 AC IV Ceftriaxone Sodium 0 .STK-MED ONE 09/04 1453 DC .ROUTE Ceftriaxone Sodium 1,000 MG ONCE ONE 09/04 1445 DC 09/04 IV 09/04 1446 1553 Enoxaparin Sodium 40 MG DAILY 09/05 1000 AC 09/05 SC 0814 Furosemide 40 MG .STK-MED ONE 09/04 2029 DC IV 09/04 2030 Furosemide 20 MG ONCE ONE 09/04 1800 DC 09/04 IV 09/04 1801 2151 Methylprednisolone 60 MG DAILY@09/05 2200 AC IV 09/07 2201 Methylprednisolone 60 MG Q12 09/04 2200 DC IV 09/08 2159 Methylprednisolone 60 MG Q12 09/04 2200 DC 09/05 IV 09/05 1001 0814 Methylprednisolone 0 .STK-MED ONE 09/04 1452 DC .ROUTE Methylprednisolone 125 MG ONCE ONE 09/04 1445 DC 09/04 IV 09/04 1446 1452 Oseltamivir Phosphate 75 MG BID 09/05 1023 AC 09/05 PO 09/09 1022 1124 Potassium Chloride 40 MEQ ONCE ONE 09/04 1800 DC 09/04 PO 09/04 1801 2034 Review of Systems Review of Systems: Review of systems as per HPI. The remainder of a 10 point review of systems was reviewed and was otherwise negative. 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 Surgical History Surgical History: non-contributory Psychosocial History Services at Home: None Smoking Status: Former Smoker ETOH Use: occasional use Illicit Drug Use: denies illicit drug use Exam & Diagnostic Data Vital Signs and I&O Vital Signs Date Time Temp Pulse Resp B/P B/P Pulse O2 O2 Flow FiO2 Mean Ox Delivery Rate 09/06 907 92 Nasal 2.5L Cannula 09/06 799 Nasal 2.5L Cannula 09/05 0549 98.2 73 20 116/70 90 Room Air 09/05 0000 Nasal 2.5L Cannula 09/04 2226 98.3 87 20 138/80 90 Nasal Cannula 09/04 1948 Nasal 3.0L Cannula 09/04 1800 94 Nasal 3.0L Cannula 09/04 1753 98.9 95 20 140/80 91 Nasal Cannula 09/04 1700 98.2 97 20 132/81 97 Nasal 2.0L Cannula 09/04 1549 87 18 141/78 96 Nasal 3.0L Cannula 09/04 1448 95 Nasal 3.0L Cannula 09/04 1338 96 26 96 Nasal 3.0L Cannula 09/04 1321 97.6 105 18 136/82 80 Room Air Intake & Output 09/05 1600 09/05 0809/05 0000 09/04 1600 09/04 0000 Intake Total 240 480 Output Total Balance 240 480 Intake, Oral 240 480 Patient 136 lb 129 lb 129 lb Weight Weight Bed scale Reported by Patient Reported by Patient Measurement Method Physical Exam: General: no apparent distress. Alert. Eyes: No obvious scleral icterus. HEENT: No jugular venous distention or abnormal jugular venous pulsations. Cardiovascular: Normal intensity S1/S2. Regular Respiratory: Mildly decreased air entry Abdomen: Soft, nontender with no guarding or rebound tenderness. Musculoskeletal: No clubbing or cyanosis noted; 1-2+ lower extremity edema bilaterally Skin: Warm Neurologic: No gross focal deficits noted. Labs/Lennox Results: Laboratory Tests 09/05 09/04 09/04 09/04 0220 2035 1900 1755 Blood Gas pH (7.35 - 7.45 PH) 7.33 L pCO2 (35 - 45 TORR) 68 *H pO2 (80 - 100 TORR) 64 L HCO3 (21 - 28 MEQ/L) 35 H ABG O2 Sat (Measured) (>96.0 %) 88.0 L P-50 (Temp Corrected) N Carboxyhemoglobin (1.5 - 5.0 %) 3.0 O2 Concentration % 3L Temperature (97.0 - 100.0 FARH) 98.9 O2 Delivery Method NC Chemistry Troponin I (< 0.11 ng/ml) < 0.01 < 0.01 Miscellaneous Phlebotomy Draw Site RIGHT BRACHIAL Serology Virus Culture Pending 09/04 1351 Chemistry Sodium (137 - 145 mmol/L) 142 Potassium (3.5 - 5.1 mmol/L) 4.2 Chloride (98 - 107 mmol/L) 95 L Carbon Dioxide (22 - 30 mmol/L) 40 H Anion Gap (5 - 16) 7 BUN (7 - 17 mg/dL) 12 Creatinine (0.5 - 1.0 mg/dL) 0.5 Estimated GFR (>60 ml/min) > 60 BUN/Creatinine Ratio (7 - 25 %) 24.0 Glucose (65 - 99 mg/dL) 82 Calcium (8.4 - 10.2 mg/dL) 9.6 Total Bilirubin (0.2 - 1.3 mg/dL) 0.9 AST (14 - 36 U/L) 36 ALT (9 - 52 U/L) 83 H Alkaline Phosphatase (<127 U/L) 55 Troponin I (< 0.11 ng/ml) < 0.01 [id number] Pept (<125 pg/mL) 311 H Total Protein (6.3 - 8.2 g/dL) 6.1 L Albumin (3.5 - 5.0 g/dL) 3.5 Globulin (1.9 - 4.2 gm/dL) 2.6 Albumin/Globulin Ratio (1.1 - 2.2 %) 1.3 Vitamin B12 (239 - 931 pg/mL) > 1000 H TSH (0.270 - 4.200 uIU/mL) 0.813 Free T4 (0.78 - 2.44 ng/dL) 1.68 Hematology CBC w Diff NO MAN DIFF REQ WBC (4.8 - 10.8 /CUMM) 6.4 RBC (4.20 - 5.40 /CUMM) 5.01 Hgb (12.0 - 16.0 G/DL) 15.8 Hct (37 - 47 %) 50.1 H MCV (81.0 - 99.0 FL) 100.0 H MCH (27.0 - 31.0 PG) 31.6 H MCHC (33.0 - 37.0 G/DL) 31.6 L RDW (11.5 - 14.5 %) 15.4 H Plt Count (130 - 400 /CUMM) 89 L MPV (7.4 - 10.4 FL) 9.5 Gran % (42.2 - 75.2 %) 69.1 Lymphocytes % (20.5 - 51.1 %) 19.6 L Monocytes % (1.7 - 9.3 %) 9.1 Eosinophils % (0 - 5 %) 2.1 Basophils % (0.0 - 2.0 %) 0.1 Absolute Granulocytes (1.4 - 6.5 /CUMM) 4.4 Absolute Lymphocytes (1.2 - 3.4 /CUMM) 1.3 Absolute Monocytes (0.10 - 0.60 /CUMM) 0.6 Absolute Eosinophils (0.0 - 0.7 /CUMM) 0.1 Absolute Basophils (0.0 - 0.2 /CUMM) 0 Diagnostic Data EKG Results Tracing was personally reviewed and shows sinus rhythm at 100 bpm with a left axis deviation and biatrial enlargement CXR Results Mild streaky opacification in the retrocardiac left lower lung, likely representing a degree of atelectasis with/without other subtle parenchymal consolidation. Other Results CT: 1. Moderate emphysema. There is also likely a component of chronic bronchitis with multiple bronchial filling defects noted. Superimposed acute small airways process not excluded. 2. No consolidation. Minimal bibasilar atelectasis. 3. 0.4 cm left lower lobe pulmonary nodules. Consider 12 month follow-up chest CT. Assessment/Plan Assessment/Plan 1. Influenza/possible pneumonia 2. lower extremity edema possibly due to cor pulmonale / rv dysfunction 3. severe COPD on home O2 4. atypical chest discomfort associated with coughing Lower extremity edema could be due to RV dysfunction in the setting of severe oxygen-dependent COPD; echocardiogram is pending. can likely continue with gentle diuresis with Lasix 20 milligrams iv daily as lower extremity edema is improving. No evidence of acute coronary syndrome; she has some chest discomfort which is reproduced when coughing. She admits to some recent increase in her salt intake and we discussed the importance of low salt diet going forward. Dereje Skinner MD FACC Consult Acknowledgment - Thank you for your consult request.
--- NOTE | 2017-09-05 13:44 | PN- Pulmonary ---
Subjective HPI/Critical Care Issues: Strep pneumo, flu Subjective: No overnight events. The patient's breathing has improved overnight. She also reports being frequently and reduce leg swelling. No chest pain or other complaints. Review of Systems Constitutional: Reports: no symptoms. EENTM: Reports: no symptoms. Cardiovascular: Reports: see HPI. Respiratory: Reports: see HPI. Gastrointestinal: Reports: no symptoms. Genitourinary: Reports: no symptoms. Musculoskeletal: Reports: no symptoms. Skin: Reports: no symptoms. Neurological/Psychological: Reports: no symptoms. Hematologic/Endocrine: Reports: no symptoms. Immunologic/Allergic: Reports: no symptoms. Objective Current Medications: Current Medications Sig/Renee Start time Last Medication Dose Route Stop Time Status Admin Acetaminophen 650 MG Q6P PRN 09/05 0745 AC PO Albuterol Sulfate 3 ML TID 09/04 2200 AC 09/05 INH 0904 Azithromycin 500 MG DAILY@1500 09/05 1500 AC Dextrose/Water 250 ML IV Azithromycin 500 MG ONCE ONE 09/04 1445 DC 09/04 Dextrose/Water 250 ML IV 09/04 1544 1553 Ceftriaxone Sodium 1,000 MG DAILY@1530 09/05 1530 AC IV Ceftriaxone Sodium 0 .STK-MED ONE 09/04 1453 DC .ROUTE Ceftriaxone Sodium 1,000 MG ONCE ONE 09/04 1445 DC 09/04 IV 09/04 1446 1553 Enoxaparin Sodium 40 MG DAILY 09/05 1000 AC 09/05 SC 0814 Furosemide 40 MG .STK-MED ONE 09/04 2029 DC IV 09/04 2030 Furosemide 20 MG ONCE ONE 09/04 1800 DC 09/04 IV 09/04 1801 2151 Methylprednisolone 60 MG DAILY@2200 09/05 2200 AC IV 09/07 2201 Methylprednisolone 60 MG Q12 09/04 2200 DC IV 09/08 2159 Methylprednisolone 60 MG Q12 09/04 2200 DC 09/05 IV 09/05 1001 0814 Methylprednisolone 0 .STK-MED ONE 09/04 1452 DC .ROUTE Methylprednisolone 125 MG ONCE ONE 09/04 1445 DC 09/04 IV 09/04 1446 1452 Oseltamivir Phosphate 75 MG BID 09/05 1023 AC 09/05 PO 09/09 1022 1124 Potassium Chloride 40 MEQ ONCE ONE 09/04 1800 DC 09/04 PO 09/04 1801 2034 Vital Signs & I&O Last 24 Hrs of Vitals and I&O: Vital Signs Date Time Temp Pulse Resp B/P B/P Pulse O2 O2 Flow FiO2 Mean Ox Delivery Rate 09/06 907 92 Nasal 2.5L Cannula 09/05 08 Nasal 2.5L Cannula 09/05 0549 98.2 73 20 116/70 90 Room Air 09/05 0000 Nasal 2.5L Cannula 09/04 2226 98.3 87 20 138/80 90 Nasal Cannula 09/04 1948 Nasal 3.0L Cannula 09/04 1800 94 Nasal 3.0L Cannula 09/04 1753 98.9 95 20 140/80 91 Nasal Cannula 09/04 1700 98.2 97 20 132/81 97 Nasal 2.0L Cannula 09/04 1549 87 18 141/78 96 Nasal 3.0L Cannula 09/04 1448 95 Nasal 3.0L Cannula Intake & Output 09/05 1600 09/05 0800 09/05 0000 Intake Total 240 480 Output Total Balance 240 480 Intake, Oral 240 480 Patient 136 lb 129 lb Weight Weight Bed scale Reported by Patient Measurement Method Impression/Plan Impression/Plan Impression/Plan: CT chest IMPRESSION: 1. Moderate emphysema. There is also likely a component of chronic bronchitis with multiple bronchial filling defects noted. Superimposed acute small airways process not excluded. 2. No consolidation. Minimal bibasilar atelectasis. 3. 0.4 cm left lower lobe pulmonary nodules. Consider 12 month follow-up chest CT. DICTATED BY: Froy ZABALA,Ha DATE/TIME DICTATED:09/04/172248 IMPRESSION: Normal triplex scan without evidence of deep venous thrombosis involving the lower extremities. DICTATED BY: Denisha ZABALA,Hadeer DATE/TIME DICTATED:09/04/171552 ultrasound IMPRESSION: Simple cyst RIGHT kidney exam otherwise normal. DICTATED BY: Denisha ZABALA,Hadeer DATE/TIME DICTATED:09/04/171553 abd General Appearance: Alert, Oriented X3, Cooperative, No Acute Distress Cardiovascular: Regular Rate, Normal S1, Normal S2 Lungs: mild crackles at base Abdomen: Normal Bowel Sounds, Soft, No Tenderness Extremities: 1+ pitting edema IMPRESSION This is a lady with very severe endstage COPD with chronic respiratory failure mainly hypercarbic with significantly elevated baseline bicarbonate with more emphysema than bronchitis, prior history of prolonged hospitalization with respiratory failure, ongoing smoking with marijuana use, history of previous alcohol use, medication noncompliance, now comes in with * REsolving Acute COPD exacerbation with chronic hypercarbic respiratory failure , now has strep pneumo bronchopneumonia and influenza pna * Acute cor pulmonale on top of chronic cor pulmonale with pedal edema with right heart dysfunction, ascites * Ongoing smoking and previous history of marijuana use * Significant erythrocytosis related to prolonged hypoxemia due to noncompliance with oxygen therapy * Thrombocytopenia probably related to congestive liver from her cor pulmonale. She does have erythrocytosis which needs to be investigated * Previous history of lung nodule which had been followed for years with benign findings. Patient is not a candidate for screening CT due to end-stage COPD * Hypothyroidism on appropriate supplementation, anxiety, mild depression * COPD cachexia with high LUCRETIA score with poor prognosis RECOMMENDATION Cont abx and tamiflu dc azithro and cont ceftriaxone Nebs atc tid IV lasix 20 mg and po kcl 40 meq again today check folate REduce oxygen to keep sat at 90 to 92
[2017-09-05 14:55] VITALS: BP 132/84
[2017-09-05 22:23] VITALS: BP 118/60
[2017-09-06 06:42] VITALS: BP 130/80
--- NOTE | 2017-09-06 08:10 | PN- Housestaff ---
See Addendum Subjective Follow-up For: Strep pneumo pneumonia, influenza, CHF Subjective: No overnight events. The patient was complaining of rib pain this morning. She says it is associated with coughing and bending. Otherwise, she says her breathing is improving and she is still being a lot. No other complaints. Review of Systems Constitutional: Reports: no symptoms. EENTM: Reports: no symptoms. Cardiovascular: Reports: no symptoms. Respiratory: Reports: see HPI. Gastrointestinal: Reports: no symptoms. Genitourinary: Reports: no symptoms. Musculoskeletal: Reports: see HPI. Skin: Reports: no symptoms. Neurological/Psychological: Reports: no symptoms. Hematologic/Endocrine: Reports: no symptoms. Immunologic/Allergic: Reports: no symptoms. Objective Last 24 Hrs of Vital Signs/I&O Vital Signs Date Time Temp Pulse Resp B/P B/P Pulse O2 O2 Flow FiO2 Mean Ox Delivery Rate 09/06 0642 97.8 76 20 130/80 96 Nasal 2.0L Cannula 09/05 2223 98.3 83 18 118/60 95 Nasal 2.5L Cannula 09/05 1600 93 Nasal 2.5L Cannula 09/05 1455 100.2 78 20 132/84 93 09/05 0908 92 Nasal 2.5L Cannula Intake & Output 09/06 1600 09/06 0800 09/06 0000 Intake Total 400 Output Total 600 100 Balance -600 300 Intake, Oral 400 Output, Urine 600 100 Physical Exam General Appearance: Alert, Oriented X3, Cooperative, No Acute Distress Cardiovascular: Regular Rate, Normal S1, Normal S2, ribs tender to palpation Lungs: Clear to Auscultation Abdomen: Normal Bowel Sounds, Soft, No Tenderness Extremities: mildly edematous Current Medications: Current Medications Sig/Renee Start time Last Medication Dose Route Stop Time Status Admin Acetaminophen 650 MG Q6P PRN 09/05 0745 AC PO Albuterol Sulfate 3 ML TID 09/04 2200 AC 09/05 INH 1850 Azithromycin 500 MG DAILY@1500 09/05 1500 CAN Dextrose/Water 250 ML IV Ceftriaxone Sodium 1,000 MG DAILY@1530 09/05 1530 AC 09/05 IV 1438 Enoxaparin Sodium 40 MG DAILY 09/05 1000 AC 09/05 SC 0814 Furosemide 40 MG .STK-MED ONE 09/05 1435 DC IV 09/05 1436 Furosemide 20 MG 1415 09/05 1415 DC 09/05 IV 09/05 1416 1438 Methylprednisolone 60 MG DAILY@2200 09/05 2199 AC 09/05 IV 09/07 220 2126 Methylprednisolone 60 MG Q12 09/04 2199 DC 09/05 IV 09/05 1001 0814 Oseltamivir Phosphate 75 MG BID 09/05 1023 AC 09/05 PO 09/09 1022 2126 Potassium Chloride 40 MEQ 1415 09/05 1415 DC 09/05 PO 09/05 1416 1438 Last 24 Hrs of Lab/Lennox Results Last 24 Hrs of Labs/Mics: Laboratory Tests 09/06/17 0745: Sodium Pending, Potassium Pending, Chloride Pending, Carbon Dioxide Pending, Anion Gap Pending, BUN Pending, Creatinine Pending, BUN/Creatinine Ratio Pending , CBC w Diff Pending, WBC Pending, RBC Pending, Hgb Pending, Hct Pending, MCV Pending, MCH Pending, MCHC Pending, RDW Pending, Plt Count Pending, MPV Pending Assessment/Plan Assessment: Ms. Patino is a 67-year-old female with past medical history of COPD who presents with shortness of breath and leg swelling. Problem list: 1. Acute hypoxic respiratory failure 2. Acute decompensated heart failure 3. Streptococcus pneumoniae pneumonia 4. Influenza A 5. Thrombocytopenia 6. Costochondritis #Acute hypoxic respiratory failure: The patient is recently been sick was also presenting with positive JVD and significant swelling consistent with heart failure. This is complicated by, and possibly precipitated by, influenza A infection with superimposed pneumonia. EKG and troponins x3 have been negative. Chest CT showed moderate emphysema and is 0.4 cm left lower lobe pulmonary nodule. Her breathing is improved. -I's and O's, daily weights -IV furosemide -IV methylprednisone -TTE -Appreciate cardiology recommendations -Ceftriaxone -Oseltamivir #Thrombocytopenia: Likely reactive. -Continue to monitor for bleeding #Costochondritis: Patient complaining of rib pain associated with coughing and has tenderness to palpation of the ribs. -Pain control #Chronic medical problems: -Continue home medications DVT prophylaxis with enoxaparin CHF diet Full code Problem List: 1. Influenza A 2. Streptococcus pneumoniae Pain Ratin Pain Location: ribs Pain Goal: Remain pain free Pain Plan: see a/p Tomorrow's Labs & Rationales: cbc, bep
[2017-09-06 08:24] LABS: ABSOLUTE BASOPHIL COUNT 0 /CUMM (0.0-0.2); ABSOLUTE EOSINOPHIL COUNT 0 /CUMM (0.0-0.7); ABSOLUTE LYMPH COUNT 0.7 /CUMM (1.2-3.4); EOSINOPHIL % 0 % (0-5); MEAN CORPUSCULAR HGB CONC 32.1 G/DL (33.0-37.0); RED BLOOD CELL CT 4.91 /CUMM (4.20-5.40)
[2017-09-06 08:40] LABS: ABSOLUTE GRANULOCYTE CT 11.1 /CUMM (1.4-6.5); ABSOLUTE MONOCYTE COUNT 0.4 /CUMM (0.10-0.60); BASOPHIL % 0.1 % (0.0-2.0); HEMATOCRIT 48.7 % (37-47); MEAN CORPUSCULAR HGB 31.8 PG (27.0-31.0); RBC DISTRIBUTION WIDTH 15.4 % (11.5-14.5)
[2017-09-06 08:41] LABS: WHITE BLOOD CELL COUNT 12.2 /CUMM (4.8-10.8)
[2017-09-06 08:58] LABS: GRANULOCYTE % 90.9 % (42.2-75.2)
--- NOTE | 2017-09-06 11:14 | PN- Cardiology ---
Subjective Subjective: Dr. López discussed the severity of her COPD with her today. She is very depressed over the news. She states her breathing has improved. Review of Systems: Eyes no blurred or double vision Ears no deafness or ringing Nose and throat no recurrent sinusitis Lungs per history of present illness Heart per history of present illness Abdomen no nausea vomiting Musculoskeletal occasional muscle and joint pains Psych depression secondary to recent information regarding her COPD Neuro without recurrent headache or seizures Endocrine no heat or cold intolerance Objective Vital Signs and I&Os Vital Signs Date Time Temp Pulse Resp B/P B/P Pulse O2 O2 Flow FiO2 Mean Ox Delivery Rate 09/06 1035 94 Nasal 2.0L Cannula 09/06 0642 97.8 76 20 130/80 96 Nasal 2.0L Cannula 09/05 2223 98.3 83 18 118/60 95 Nasal 2.5L Cannula 09/05 1600 93 Nasal 2.5L Cannula 09/05 1455 100.2 78 20 132/84 93 Intake & Output 09/06 1600 09/06 0800 09/06 0000 09/05 1600 09/05 0800 09/05 0000 Intake Total 400 240 480 Output Total 550 600 500 Balance -550 -600 -100 240 480 Intake, IV 0 Intake, Oral 400 240 480 Number 0 Bowel Movements Output, Urine 550 600 500 Patient 136 lb 129 lb Weight Weight Bed scale Reported by Patient Measurement Method Physical Exam: Patient is a well-developed well-nourished female appearing in no acute distress HEENT is unremarkable Neck is supple there is no JVD Lungs few scattered rhonchi Heart regular rhythm S1 and S2 are normal no murmurs gallops or rubs Abdomen bowel sounds positive Extremities 1+ edema Current Medications: Current Medications Sig/Renee Start time Last Medication Dose Route Stop Time Status Admin Acetaminophen 650 MG Q6P PRN 09/05 0745 AC PO Albuterol Sulfate 3 ML TID 09/04 2200 AC 09/06 INH 1035 Azithromycin 500 MG DAILY@1500 09/05 1500 CAN Dextrose/Water 250 ML IV Ceftriaxone Sodium 1,000 MG DAILY@1530 09/05 1530 AC 09/05 IV 1438 Enoxaparin Sodium 40 MG DAILY 09/05 1000 AC 09/06 SC 1056 Furosemide 20 MG 1415 09/06 1415 AC IV 09/06 1416 Furosemide 40 MG .STK-MED ONE 09/05 1435 DC IV 09/05 1436 Furosemide 20 MG 1415 09/05 1415 DC 09/05 IV 09/05 1416 1438 Methylprednisolone 60 MG DAILY@09/05 AC 09/05 IV 09/07 Oseltamivir Phosphate 75 MG BID 09/05 1023 AC 09/06 PO 09/09 1022 1057 Potassium Chloride 40 MEQ 1415 09/06 1415 AC PO 09/06 1416 Potassium Chloride 40 MEQ 1415 09/05 1415 DC 09/05 PO 09/05 1416 1438 Results Last 48 Hrs of Labs/Mics: Laboratory Tests 09/06/17 0745: Anion Gap 9, Estimated GFR > 60, BUN/Creatinine Ratio 36.7 H, CBC w Diff NO MAN DIFF REQ, RBC 4.91, MCV 99.0, MCH 31.8 H, MCHC 32.1 L, RDW 15.4 H, Gran % 90.9 H, Lymphocytes % 5.6 L, Monocytes % 3.4, Eosinophils % 0, Basophils % 0.1 , Absolute Granulocytes 11.1 H, Absolute Lymphocytes 0.7 L, Absolute Monocytes 0.4, Absolute Eosinophils 0, Absolute Basophils 0 09/05/17 0220: Troponin I < 0.01, Folate > 20.0 H 09/04/17 2035: Troponin I < 0.01 09/04/17 1900: pH 7.33 L, pCO2 68 *H, pO2 64 L, HCO3 35 H, ABG O2 Sat (Measured) 88.0 L, P- 50 (Temp Corrected) N, Carboxyhemoglobin 3.0, O2 Concentration % 3L, Temperature 98.9, O2 Delivery Method NC, Phlebotomy Draw Site RIGHT BRACHIAL 09/04/17 1755: Virus Culture Pending 09/04/17 1351: Anion Gap 7, Estimated GFR > 60, BUN/Creatinine Ratio 24.0, Glucose 82, Calcium 9.6, Total Bilirubin 0.9, AST 36, ALT 83 H, Alkaline Phosphatase 55, Troponin I < 0.01, Uxm-H-Ajlfljxtjab Pept 311 H, Total Protein 6.1 L, Albumin 3.5, Globulin 2.6, Albumin/Globulin Ratio 1.3, Vitamin B12 > 1000 H, TSH 0.813, Free T4 1.68, CBC w Diff NO MAN DIFF REQ, RBC 5.01, MCV 100.0 H, MCH 31.6 H, MCHC 31.6 L, RDW 15.4 H, MPV 9.5, Gran % 69.1, Lymphocytes % 19.6 L, Monocytes % 9.1, Eosinophils % 2.1, Basophils % 0.1, Absolute Granulocytes 4.4, Absolute Lymphocytes 1.3, Absolute Monocytes 0.6, Absolute Eosinophils 0.1, Absolute Basophils 0 Microbiology 09/04 2129 URINE ROUT: Legionella Antigen - COMP 09/04 2129 URINE ROUT: Streptococcus pneumoniae Antigen (M - COMP STREP PNEUMO BACTERIAL AG 09/04 184 NASOPHARYN: Influenza Virus A & B Rapid Smear - COMP INFLUENZA TYPE A Assessment/Plan Assessment/Plan 1. Influenza/possible pneumonia 2. lower extremity edema possibly due to cor pulmonale / rv dysfunction 3. severe COPD on home O2 4. atypical chest discomfort associated with coughing Recommendations 1. Continue to diuresis 2. Echocardiogram is pending 3. Continue to diurese 4. Continue antibiotics Continue telemetry? No
[2017-09-06 14:16] VITALS: BP 110/60
--- NOTE | 2017-09-06 19:08 | PN- Pulmonary ---
Subjective HPI/Critical Care Issues: No overnight events. The patient was complaining of rib pain this morning. She says it is associated with coughing and bending. Otherwise, she says her breathing is improving and she is still being a lot. No other complaints. Review of Systems Constitutional: Reports: no symptoms. EENTM: Reports: no symptoms. Cardiovascular: Reports: no symptoms. Respiratory: Reports: see HPI. Gastrointestinal: Reports: no symptoms. Genitourinary: Reports: no symptoms. Musculoskeletal: Reports: see HPI. Skin: Reports: no symptoms. Neurological/Psychological: Reports: no symptoms. Hematologic/Endocrine: Reports: no symptoms. Immunologic/Allergic: Reports: no symptoms. Objective Current Medications: Current Medications Sig/Renee Start time Last Medication Dose Route Stop Time Status Admin Acetaminophen 650 MG Q6P PRN 09/05 0745 AC PO Albuterol Sulfate 3 ML TID 09/04 2199 AC 09/06 INH 1035 Ceftriaxone Sodium 1,000 MG DAILY@1530 09/05 1530 AC 09/06 IV 1836 Enoxaparin Sodium 40 MG DAILY 09/05 1000 AC 09/06 SC 1056 Furosemide 20 MG 1415 09/06 1415 DC IV 09/06 1416 Methylprednisolone 60 MG DAILY@2200 09/05 2200 AC 09/05 IV 09/07 2201 2126 Oseltamivir Phosphate 75 MG BID 09/05 1023 AC 09/06 PO 09/09 1022 1057 Potassium Chloride 40 MEQ 1415 09/06 1415 DC 09/06 PO 09/06 1416 1835 Vital Signs & I&O Last 24 Hrs of Vitals and I&O: Vital Signs Date Time Temp Pulse Resp B/P B/P Pulse O2 O2 Flow FiO2 Mean Ox Delivery Rate 09/06 1416 98.1 83 18 110/60 20 Nasal 2.5L Cannula 09/06 1035 94 Nasal 2.0L Cannula 09/06 0642 97.8 76 20 130/80 96 Nasal 2.0L Cannula 09/05 2223 98.3 83 18 118/60 95 Nasal 2.5L Cannula Intake & Output 09/06 1600 09/06 0800 09/06 0000 Intake Total 400 Output Total 550 600 500 Balance -550 -600 -100 Intake, IV 0 Intake, Oral 400 Number 0 Bowel Movements Output, Urine 550 600 500 Laboratory Tests 09/06 09/05 09/04 0745 0220 2035 Chemistry Sodium (137 - 145 mmol/L) 141 Potassium (3.5 - 5.1 mmol/L) 4.7 Chloride (98 - 107 mmol/L) 94 L Carbon Dioxide (22 - 30 mmol/L) 39 H Anion Gap (5 - 16) 9 BUN (7 - 17 mg/dL) 22 H Creatinine (0.5 - 1.0 mg/dL) 0.6 Estimated GFR (>60 ml/min) > 60 BUN/Creatinine Ratio (7 - 25 %) 36.7 H Troponin I (< 0.11 ng/ml) < 0.01 < 0.01 Folate (2.76 - 20.0 ng/mL) > 20.0 H Hematology CBC w Diff NO MAN DIFF REQ WBC (4.8 - 10.8 /CUMM) 12.2 H RBC (4.20 - 5.40 /CUMM) 4.91 Hgb (12.0 - 16.0 G/DL) 15.6 Hct (37 - 47 %) 48.7 H MCV (81.0 - 99.0 FL) 99.0 MCH (27.0 - 31.0 PG) 31.8 H MCHC (33.0 - 37.0 G/DL) 32.1 L RDW (11.5 - 14.5 %) 15.4 H Plt Count (/CUMM) Gran % (42.2 - 75.2 %) 90.9 H Lymphocytes % (20.5 - 51.1 %) 5.6 L Monocytes % (1.7 - 9.3 %) 3.4 Eosinophils % (0 - 5 %) 0 Basophils % (0.0 - 2.0 %) 0.1 Absolute Granulocytes (1.4 - 6.5 /CUMM) 11.1 H Absolute Lymphocytes (1.2 - 3.4 /CUMM) 0.7 L Absolute Monocytes (0.10 - 0.60 /CUMM) 0.4 Absolute Eosinophils (0.0 - 0.7 /CUMM) 0 Absolute Basophils (0.0 - 0.2 /CUMM) 0 Microbiology Date/Time Procedure - Status Source Growth 09/04 2129 Legionella Antigen - COMP URINE ROUT 09/04 2129 Streptococcus pneumoniae Antigen (M - COMP URINE ROUT STREP PNEUMO BACTERIAL AG 09/04 184 Influenza Virus A & B Rapid Smear - COMP NASOPHARYN INFLUENZA TYPE A 09/04 1547 Blood Culture - RES BLOOD 09/04 1350 Blood Culture - RES BLOOD Impression/Plan Impression/Plan Impression/Plan: CT chest IMPRESSION: 1. Moderate emphysema. There is also likely a component of chronic bronchitis with multiple bronchial filling defects noted. Superimposed acute small airways process not excluded. 2. No consolidation. Minimal bibasilar atelectasis. 3. 0.4 cm left lower lobe pulmonary nodules. Consider 12 month follow-up chest CT. DICTATED BY: Froy ZABALA,Ha DATE/TIME DICTATED:09/04/172248 IMPRESSION: Normal triplex scan without evidence of deep venous thrombosis involving the lower extremities. DICTATED BY: Denisha ZABALA,Hadeer DATE/TIME DICTATED:09/04/171552 ultrasound IMPRESSION: Simple cyst RIGHT kidney exam otherwise normal. DICTATED BY: Denisha ZABALA,Hadeer DATE/TIME DICTATED:09/04/171553 abd General Appearance: Alert, Oriented X3, Cooperative, No Acute Distress Cardiovascular: Regular Rate, Normal S1, Normal S2 Lungs: mild crackles at base Abdomen: Normal Bowel Sounds, Soft, No Tenderness Extremities: 1+ pitting edema IMPRESSION This is a lady with very severe endstage COPD with chronic respiratory failure mainly hypercarbic with significantly elevated baseline bicarbonate with more emphysema than bronchitis, prior history of prolonged hospitalization with respiratory failure, ongoing smoking with marijuana use, history of previous alcohol use, medication noncompliance, now comes in with * REsolving Acute COPD exacerbation with chronic hypercarbic respiratory failure , now has strep pneumo bronchopneumonia and influenza pna * Acute cor pulmonale on top of chronic cor pulmonale with pedal edema with right heart dysfunction, ascites * Ongoing smoking and previous history of marijuana use * Significant erythrocytosis related to prolonged hypoxemia due to noncompliance with oxygen therapy * Thrombocytopenia probably related to congestive liver from her cor pulmonale. She does have erythrocytosis which needs to be investigated * Previous history of lung nodule which had been followed for years with benign findings. Patient is not a candidate for screening CT due to end-stage COPD * Hypothyroidism on appropriate supplementation, anxiety, mild depression * COPD cachexia with high LUCRETIA score with poor prognosis * Sig anxiety and depression made worse by prednisone RECOMMENDATION Cont abx and tamiflu Nebs atc tid IV lasix 20 mg and po kcl 40 meq again today REduce oxygen to keep sat at 90 to 92 Will start lexapro 10 mg daily if pt is willing Counselled
[2017-09-06 22:07] VITALS: BP 122/70
[2017-09-07 06:43] VITALS: BP 130/60
--- NOTE | 2017-09-07 07:38 | PN- Housestaff ---
Subjective Follow-up For: AHRF Subjective: No overnight events. Patient says she is improving but does not feel ready to go home. She is still feeling depressed is asking about getting a portable oxygen tank that she can carry to work with her so she can continue working. She is now interested in talking to a psychiatrist also do in the afternoon. She also be interested in walking around. Review of Systems Constitutional: Reports: no symptoms. EENTM: Reports: no symptoms. Cardiovascular: Reports: no symptoms. Respiratory: Reports: see HPI. Gastrointestinal: Reports: no symptoms. Genitourinary: Reports: no symptoms. Musculoskeletal: Reports: no symptoms. Skin: Reports: no symptoms. Neurological/Psychological: Reports: see HPI. Hematologic/Endocrine: Reports: no symptoms. Immunologic/Allergic: Reports: no symptoms. Objective Last 24 Hrs of Vital Signs/I&O Vital Signs Date Time Temp Pulse Resp B/P B/P Pulse O2 O2 Flow FiO2 Mean Ox Delivery Rate 09/07 0643 98.1 74 20 130/60 94 09/07 0000 Nasal 2.0L Cannula 09/06 2206 98.3 86 18 122/70 92 Nasal Cannula 09/06 1945 92 Nasal 2.0L Cannula 09/06 1416 98.1 83 18 110/60 20 Nasal 2.5L Cannula 09/06 1035 94 Nasal 2.0L Cannula 09/06 0800 93 Nasal 2.0L Cannula Intake & Output 09/07 0800 09/07 0000 09/06 1600 Intake Total 300 200 800 Output Total 2750 550 Balance -2450 200 250 Intake, Oral 300 200 800 Output, Urine 2750 550 Physical Exam General Appearance: Alert, Oriented X3, Cooperative, No Acute Distress Cardiovascular: Regular Rate, Normal S1, Normal S2 Lungs: crackles at base Extremities: 2+ pitting edema Current Medications: Current Medications Sig/Renee Start time Last Medication Dose Route Stop Time Status Admin Acetaminophen 650 MG Q6P PRN 09/05 0745 AC PO Albuterol Sulfate 3 ML TID 09/04 2200 AC 09/06 INH 1938 Ceftriaxone Sodium 1,000 MG DAILY@1530 09/05 1530 AC 09/06 IV 1836 Enoxaparin Sodium 40 MG DAILY 09/05 1000 AC 09/06 SC 1056 Furosemide 40 MG .STK-MED ONE 09/06 1834 DC IV 09/06 183 Furosemide 20 MG 1415 09/06 1415 DC 09/06 IV 09/06 1416 2126 Methylprednisolone 60 MG DAILY@2200 09/05 2199 AC 09/06 IV 09/07 Oseltamivir Phosphate 75 MG BID 09/05 1023 AC 09/06 PO 09/09 102 2126 Potassium Chloride 40 MEQ 1415 09/06 1415 DC 09/06 PO 09/06 1416 1835 Last 24 Hrs of Lab/Lennox Results Last 24 Hrs of Labs/Mics: Laboratory Tests 09/06/17 0745: Anion Gap 9, Estimated GFR > 60, BUN/Creatinine Ratio 36.7 H, CBC w Diff NO MAN DIFF REQ, RBC 4.91, MCV 99.0, MCH 31.8 H, MCHC 32.1 L, RDW 15.4 H, Gran % 90.9 H, Lymphocytes % 5.6 L, Monocytes % 3.4, Eosinophils % 0, Basophils % 0.1 , Absolute Granulocytes 11.1 H, Absolute Lymphocytes 0.7 L, Absolute Monocytes 0.4, Absolute Eosinophils 0, Absolute Basophils 0 Assessment/Plan Assessment: Ms. Patino is a 67-year-old female with past medical history of COPD who presents with shortness of breath and leg swelling. Problem list: 1. Acute hypoxic respiratory failure 2. Acute decompensated heart failure 3. Streptococcus pneumoniae pneumonia 4. Influenza A 5. Thrombocytopenia 6. Costochondritis 7. Mood disorder #Acute hypoxic respiratory failure: The patient is recently been sick was also presenting with positive JVD and significant swelling consistent with heart failure. This is complicated by, and possibly precipitated by, influenza A infection with superimposed pneumonia. EKG and troponins x3 have been negative. Chest CT showed moderate emphysema and is 0.4 cm left lower lobe pulmonary nodule. Her breathing is improved. -I's and O's, daily weights -IV furosemide -IV methylprednisone -TTE -Appreciate cardiology recommendations -Ceftriaxone, day 4 -Oseltamivir, day 3 #Mood disorder: Patient was noted to be complaining of depressed mood. Depression screening showed that she scored for moderately severe depression. It is also noted that she sometimes has pressured speech. There may be a component of kieran. She was initially refusing psychiatric evaluation but today has agreed to talk to someone. She is also concerned about going to work with oxygen is asking for a portable oxygen tank. 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 -Continue to monitor for bleeding #Costochondritis: Patient complaining of rib pain associated with coughing and has tenderness to palpation of the ribs. -Pain control #Chronic medical problems: -Continue home medications DVT prophylaxis with enoxaparin CHF diet Full code Problem List: 1. Streptococcus pneumoniae 2. Influenza A Pain Ratin Pain Location: no Pain Goal: Remain pain free Pain Plan: see a/p Tomorrow's Labs & Rationales: bep
[2017-09-07 08:25] LABS: ABSOLUTE BASOPHIL COUNT 0 /CUMM (0.0-0.2); ABSOLUTE EOSINOPHIL COUNT 0 /CUMM (0.0-0.7); ABSOLUTE LYMPH COUNT 0.7 /CUMM (1.2-3.4); ABSOLUTE MONOCYTE COUNT 0.1 /CUMM (0.10-0.60)
[2017-09-07 08:55] LABS: ABSOLUTE GRANULOCYTE CT 7.8 /CUMM (1.4-6.5); BASOPHIL % 0.1 % (0.0-2.0); EOSINOPHIL % 0 % (0-5); GRANULOCYTE % 90.5 % (42.2-75.2); MEAN CORPUSCULAR HGB 31.8 PG (27.0-31.0); MEAN CORPUSCULAR HGB CONC 31.9 G/DL (33.0-37.0); MEAN CORPUSCULAR VOLUME 99.7 FL (81.0-99.0); MEAN PLATELET VOLUME 9.7 FL (7.4-10.4); RED BLOOD CELL CT 4.91 /CUMM (4.20-5.40); WHITE BLOOD CELL COUNT 8.6 /CUMM (4.8-10.8)
--- NOTE | 2017-09-07 09:59 | ECHOCARDIOGRAM REPORT ---
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 Technologist: Ilana Nino RDCS Room Number: 231 Indications: HEART FAILURE Rhythm: Technical Quality: Good FINDINGS Left Ventricle Normal global left ventricular size, wall thickness, systolic function with no obvious regional wall motion abnormalities. Left ventricular ejection fraction is estimated at > 55 %. Right Ventricle Normal right ventricular size and function. Right Atrium Normal right atrial size. Left Atrium Normal left atrial size. Mitral Valve Structurally normal mitral valve. Mild mitral regurgitation. Aortic Valve No aortic stenosis. Trileaflet aortic valve. Tricuspid Valve Structurally normal tricuspid valve. Mild tricuspid regurgitation. Moderate pulmonary hypertension. Pulmonic Valve Pulmonic valve not well visualized, grossly normal. Pericardium No pericardial effusion. Great Vessels Normal size aortic root. CONCLUSIONS Normal global left ventricular size, wall thickness, systolic function with no obvious regional wall motion abnormalities. Left ventricular ejection fraction is estimated at > 55 %. Normal right ventricular size and function. Moderate pulmonary hypertension. No pericardial effusion. Wilfred Skinner M.D. (Electronically Signed) Final Date: 07 September 2017 09:58 MEASUREMENTS (Male / Female) Normal Values 2D ECHO LV Diastolic Diameter PLAX 4.4 cm 4.2 - 5.9 / 3.9 - 5.3 cm LV Systolic Diameter PLAX 3.1 cm 2.1 - 4.0 cm LV Fractional Shortening PLAX 29.5 % 25 - 46 % LV Ejection Fraction 2D Teich 56.8 % IVS Diastolic Thickness 1.0 cm LVPW Diastolic Thickness 1.0 cm LV Relative Wall Thickness 0.5 RV Internal Dim ED PLAX 3.6 cm 1.9 - 3.8 cm LVOT Diameter 2.0 cm Aortic Root Diameter 3.2 cm LA Systolic Diameter LX 3.2 cm 3.0 - 4.0 / 2.7 - 3.8 cm LA Volume 41.0 cm 18 - 58 / 22 - 52 cm Ascending Aorta Diameter 3.3 cm DOPPLER AV Peak Velocity 133.0 cm/s AV Peak Gradient 7.1 mmHg AV Mean Velocity 92.1 cm/s AV Mean Gradient 4.0 mmHg AV Velocity Time Integral 29.6 cm LVOT Peak Velocity 112.0 cm/s LVOT Peak Gradient 5.0 mmHg LVOT Mean Velocity 75.0 cm/s LVOT Mean Gradient 3.0 mmHg LVOT Velocity Time Integral 24.2 cm LVOT Stroke Volume 76.0 cm AV Area Cont Eq vti 2.6 cm AV Area Cont Eq pk 2.6 cm MV Peak Velocity 108.0 cm/s MV Peak Gradient 4.7 mmHg MV Mean Velocity 64.2 cm/s MV Mean Gradient 2.0 mmHg Mitral E Point Velocity 83.9 cm/s Mitral A Point Velocity 102.0 cm/s Mitral E to A Ratio 0.8 MV PHT Velocity 117.0 cm/s MV Deceleration [place] 497.0 cm/s MV Pressure Half Time 70.6 ms MV Area PHT 3.1 cm MV Deceleration Time 193.0 ms TR Peak Velocity 341.0 cm/s TR Peak Gradient 46.5 mmHg Right Atrial Pressure 5.0 mmHg Pulmonary Artery Systolic Pressu 51.5 mmHg Right Ventricular Systolic Press 51.5 mmHg PV Peak Velocity 89.6 cm/s PV Peak Gradient 3.2 mmHg PV Mean Velocity 60.8 cm/s PV Mean Gradient 2.0 mmHg PV Velocity Time Integral 18.0 cm LV E' Lateral Velocity 14.2 cm/s Mitral E to LV E' Lateral Ratio 5.9 LV E' Septal Velocity 9.0 cm/s Mitral E to LV E' Septal Ratio 9.3
[2017-09-07] MEDS ORDERED: AMOXICILLIN875 M1 PO (10:53)
[2017-09-07] MEDS ORDERED: TAMIFLU75 M1 PO (10:53)
--- NOTE | 2017-09-07 10:56 | Patient Discharge Instructions ---
Discharge Instructions General Discharge Information You were seen/treated for: Influenza, Streptococcus pneumoniae pneumonia, congestive heart failure Watch for these problems: Fever, chest pain, shortness of breath Special Instructions: Please take all medications as directed. Please follow-up with pulmonology. Diet Continue normal diet: No Activity Full Activity/No Limits: No Acute Coronary Syndrome Inclusion Criteria At DC or during hospital stay patient has or had the following: ACS DIAGNOSIS No Discharge Core Measures Meds if any: Prescribed or Continued at Discharge Meds if any: NOT Prescribed or Continued at Discharge Congestive Heart Failure Inclusion Criteria At DC or during hospital stay patient has or had the following: CHF DIAGNOSIS Yes Discharge Core Measures Meds if any: Prescribed or Continued at Discharge Meds if any: NOT Prescribed or Continued at Discharge Cerebrovascular accident Inclusion Criteria At DC or during hospital stay patient has or had the following: CVA/TIA Diagnosis No Discharge Core Measures Meds if any: Prescribed or Continued at Discharge Meds if any: NOT Prescribed or Continued at Discharge Venous thromboembolism Inclusion Criteria VTE Diagnosis No VTE Type NONE VTE Confirmed by (Test) NONE Discharge Core Measures - Per Current guidelines, there needs to be overlap - treatment for the first 5 days of Warfarin therapy. - If discharged on Warfarin prior to 5 days of - overlap therapy, the patient will need to be - assessed for post discharge needs including - *Post discharge parental anticoagulation - *Warfarin and/or parental anticoagulation education - *Follow up date to check INR post discharge At least 5 days overlap therapy as Inpatient No Meds if any: Prescribed or Continued at Discharge Note: Overlap Therapy is Warfarin and Anticoagulant Meds if any: NOT Prescribed or Continued at Discharge
[2017-09-07 11:48] LABS: ABSOLUTE BASOPHIL COUNT 0 /CUMM (0.0-0.2); ABSOLUTE EOSINOPHIL COUNT 0 /CUMM (0.0-0.7); ABSOLUTE GRANULOCYTE CT 6.7 /CUMM (1.4-6.5); ABSOLUTE MONOCYTE COUNT 0.5 /CUMM (0.10-0.60); BASOPHIL % 0.1 % (0.0-2.0); EOSINOPHIL % 0.1 % (0-5); GRANULOCYTE % 81.3 % (42.2-75.2); HEMATOCRIT 50.1 % (37-47); MEAN CORPUSCULAR HGB 31.7 PG (27.0-31.0); MEAN CORPUSCULAR HGB CONC 32.2 G/DL (33.0-37.0); MEAN CORPUSCULAR VOLUME 98.3 FL (81.0-99.0); RBC DISTRIBUTION WIDTH 14.6 % (11.5-14.5); RED BLOOD CELL CT 5.09 /CUMM (4.20-5.40)
[2017-09-07 12:36] LABS: PLATELET COUNT 206 /CUMM (130-400)
[2017-09-07 12:47] LABS: WHITE BLOOD CELL COUNT 8.3 /CUMM (4.8-10.8)
--- NOTE | 2017-09-07 12:47 | PN- Cardiology ---
Subjective Subjective: Doing well but still with some lower extremity edema. No chest pain. Objective Vital Signs and I&Os Vital Signs Date Time Temp Pulse Resp B/P B/P Pulse O2 O2 Flow FiO2 Mean Ox Delivery Rate 09/07 0924 94 Nasal 2.0L Cannula 09/07 0643 98.1 74 20 130/60 94 09/07 0000 Nasal 2.0L Cannula 09/06 2207 98.3 86 18 122/70 92 Nasal Cannula 09/06 1945 92 Nasal 2.0L Cannula 09/06 1416 98.1 83 18 110/60 20 Nasal 2.5L Cannula Intake & Output 09/07 1600 09/07 0800 09/07 0000 09/06 1600 09/06 0800 09/06 0000 Intake Total 300 200 800 400 Output Total 2750 550 600 500 Balance -2450 200 250 -600 -100 Intake, IV 0 Intake, Oral 300 200 800 400 Number 0 Bowel Movements Output, Urine 2750 550 600 500 Physical Exam: General: no apparent distress. Alert. Eyes: No obvious scleral icterus. HEENT: No jugular venous distention or abnormal jugular venous pulsations. Cardiovascular: Normal intensity S1/S2. Regular Respiratory: Mildly decreased air entry Abdomen: Soft, nontender with no guarding or rebound tenderness. Musculoskeletal: No clubbing or cyanosis noted; 1+ lower extremity edema bilaterally Skin: Warm Neurologic: No gross focal deficits noted. Current Medications: Current Medications Sig/Renee Start time Last Medication Dose Route Stop Time Status Admin Acetaminophen 650 MG Q6P PRN 09/05 0745 AC PO Acetazolamide 250 MG ONCE ONE 09/07 1045 DC 09/07 PO 09/07 1046 1140 Albuterol Sulfate 3 ML TID 09/04 2200 AC 09/07 INH 0923 Ceftriaxone Sodium 1,000 MG DAILY@1530 /09 1530 AC 09/06 IV 1836 Enoxaparin Sodium 40 MG DAILY 09/05 1000 AC 09/07 SC 1011 Furosemide 40 MG .STK-MED ONE 09/06 1834 DC IV 09/06 1835 Furosemide 20 MG 1415 09/06 1415 DC 09/06 IV 09/06 1416 2126 Methylprednisolone 60 MG DAILY@2200 09/05 2200 DC 09/06 IV 09/07 2201 2126 Oseltamivir Phosphate 75 MG BID 09/05 1023 AC 09/07 PO 04/13 1022 1010 Potassium Chloride 40 MEQ 1415 09/06 1415 DC 09/06 PO 09/06 1416 1835 Prednisone 40 MG ONCE ONE 09/07 1045 DC 09/07 PO 09/07 1046 1140 Results Last 48 Hrs of Labs/Mics: Laboratory Tests 09/07/17 1105: CBC w Diff Pending, WBC Pending, RBC Pending, Hgb Pending, Hct Pending, MCV Pending, MCH Pending, MCHC Pending, RDW Pending, Plt Count Pending, Gran % Pending, Lymphocytes % Pending, Monocytes % Pending, Eosinophils % Pending, Basophils % Pending, Absolute Granulocytes Pending, Absolute Lymphocytes Pending , Absolute Monocytes Pending, Absolute Eosinophils Pending, Absolute Basophils Pending 09/07/17 0703: Anion Gap 7, Estimated GFR > 60, BUN/Creatinine Ratio 43.3 H, CBC w Diff MAN DIFF ORDERED, RBC 4.91, MCV 99.7 H, MCH 31.8 H, MCHC 31.9 L, RDW 15.0 H, MPV 9.7, Gran % 90.5 H, Lymphocytes % 8.3 L, Monocytes % 1.1 L, Eosinophils % 0, Basophils % 0.1, Absolute Granulocytes 7.8 H, Absolute Lymphocytes 0.7 L, Absolute Monocytes 0.1, Absolute Eosinophils 0, Absolute Basophils 0, Normocytic RBCs VERIFIED, Normochromic RBCs VERIFIED 09/06/17 0745: Anion Gap 9, Estimated GFR > 60, BUN/Creatinine Ratio 36.7 H, CBC w Diff NO MAN DIFF REQ, RBC 4.91, MCV 99.0, MCH 31.8 H, MCHC 32.1 L, RDW 15.4 H, Gran % 90.9 H, Lymphocytes % 5.6 L, Monocytes % 3.4, Eosinophils % 0, Basophils % 0.1 , Absolute Granulocytes 11.1 H, Absolute Lymphocytes 0.7 L, Absolute Monocytes 0.4, Absolute Eosinophils 0, Absolute Basophils 0 Recent Imaging Studies: Echo Normal global left ventricular size, wall thickness, systolic function with no obvious regional wall motion abnormalities. Left ventricular ejection fraction is estimated at > 55 %. Normal right ventricular size and function. Moderate pulmonary hypertension. No pericardial effusion. Wilfred Skinner M.D. (Electronically Signed) Final Date: 07 September 2017 09:58 Assessment/Plan Assessment/Plan 1. Influenza/possible pneumonia 2. lower extremity edema possibly due to cor pulmonale 3. severe COPD on home O2 4. Atypical chest discomfort associated with coughing Doing well. Edema does appear to be improving. She had a dose of Diamox today. echocardiogram as above showed normal biventricular function but moderate pulmonary hypertension was noted. Patient will likely be planned for discharge tomorrow on oral diuretic therapy. Dereje Skinner MD FAC Continue telemetry? Not applicable
--- NOTE | 2017-09-07 13:28 | PN- Pulmonary ---
Subjective HPI/Critical Care Issues: Better Anxious fatigue Objective Current Medications: Current Medications Sig/Renee Start time Last Medication Dose Route Stop Time Status Admin Acetaminophen 650 MG Q6P PRN 09/05 0745 AC PO Acetazolamide 250 MG ONCE ONE 09/07 1045 DC 09/07 PO 09/07 1046 1140 Albuterol Sulfate 3 ML TID 09/04 2200 AC 09/07 INH 0923 Ceftriaxone Sodium 1,000 MG DAILY@1530 09/05 1530 AC 09/06 IV 1836 Enoxaparin Sodium 40 MG DAILY 09/05 1000 AC 09/07 SC 1011 Furosemide 40 MG .STK-MED ONE 09/06 1834 DC IV 09/06 1835 Furosemide 20 MG 1415 09/06 1415 DC 09/06 IV 09/06 1416 2126 Methylprednisolone 60 MG DAILY@09/05 2200 DC 09/06 IV 09/07 2202125 Oseltamivir Phosphate 75 MG BID 09/05 1023 AC 09/07 PO 09/09 1022 1010 Potassium Chloride 40 MEQ 1415 09/06 1415 DC 09/06 PO 09/06 1416 1835 Prednisone 40 MG ONCE ONE 09/07 1045 DC 09/07 PO 09/07 1046 1140 Vital Signs & I&O Last 24 Hrs of Vitals and I&O: Vital Signs Date Time Temp Pulse Resp B/P B/P Pulse O2 O2 Flow FiO2 Mean Ox Delivery Rate 09/07 0924 94 Nasal 2.0L Cannula 09/07 0643 98.1 74 20 130/60 94 09/07 0000 Nasal 2.0L Cannula 09/06 2206 98.3 86 18 122/70 92 Nasal Cannula 09/06 1945 92 Nasal 2.0L Cannula 09/06 1416 98.1 83 18 110/60 20 Nasal 2.5L Cannula Intake & Output 09/07 1600 09/07 0800 09/07 0000 Intake Total 300 200 Output Total 2750 Balance -2450 200 Intake, Oral 300 200 Output, Urine 2750 Impression/Plan Impression/Plan Impression/Plan: CT chest IMPRESSION: 1. Moderate emphysema. There is also likely a component of chronic bronchitis with multiple bronchial filling defects noted. Superimposed acute small airways process not excluded. 2. No consolidation. Minimal bibasilar atelectasis. 3. 0.4 cm left lower lobe pulmonary nodules. Consider 12 month follow-up chest CT. DICTATED BY: Froy ZABALA,Ha DATE/TIME DICTATED:09/04/172248 IMPRESSION: Normal triplex scan without evidence of deep venous thrombosis involving the lower extremities. DICTATED BY: Denisha ZABALA,Hadeer DATE/TIME DICTATED:09/04/171552 ultrasound IMPRESSION: Simple cyst RIGHT kidney exam otherwise normal. DICTATED BY: Denisha ZABALA,Hadeer DATE/TIME DICTATED:09/04/171553 abd General Appearance: Alert, Oriented X3, Cooperative, No Acute Distress Cardiovascular: Regular Rate, Normal S1, Normal S2 Lungs: mild crackles at base Abdomen: Normal Bowel Sounds, Soft, No Tenderness Extremities: 1+ pitting edema IMPRESSION This is a lady with very severe endstage COPD with chronic respiratory failure mainly hypercarbic with significantly elevated baseline bicarbonate with more emphysema than bronchitis, prior history of prolonged hospitalization with respiratory failure, ongoing smoking with marijuana use, history of previous alcohol use, medication noncompliance, now comes in with * REsolving Acute COPD exacerbation with chronic hypercarbic respiratory failure , now has strep pneumo bronchopneumonia and influenza pna * Acute cor pulmonale on top of chronic cor pulmonale with pedal edema with right heart dysfunction, ascites * Ongoing smoking and previous history of marijuana use * Significant erythrocytosis related to prolonged hypoxemia due to noncompliance with oxygen therapy * Thrombocytopenia probably related to congestive liver from her cor pulmonale. She does have erythrocytosis which needs to be investigated * Previous history of lung nodule which had been followed for years with benign findings. Patient is not a candidate for screening CT due to end-stage COPD * Hypothyroidism on appropriate supplementation, anxiety, mild depression * COPD cachexia with high LUCRETIA score with poor prognosis * Sig anxiety and depression made worse by prednisone RECOMMENDATION Tamiflu for 5 days Po abx ceftin 500 for a total of seven days of antibiotics Nebs atc tid Po acetozolamide one dose Ok with psych eval Reduce steroid to 40 po Ok to dc in am REduce oxygen to keep sat at 90 to 92 Will start lexapro 10 mg daily if pt is willing Counselled
[2017-09-07 14:20] VITALS: BP 128/64
--- NOTE | 2017-09-07 14:33 | PN- Student ---
Subjective Subjective: Ms. Patino reports no overnight events. She has improved breathing after being treated for influenza and strep. pneumoniae. She has been on continous supplemental oxygen throughout the duration of her hospitalization and will need to be upon discharge. Yesterday afternoon she was evaluated for depression and at that time refused psychatric consultation. However today she has stated that she is willing to meet with a store specialist. Additionally she has expressed feelings of being overwhelmed and does not feel ready to go home. She lives alone in a duplex and has expressed she may not be able to care for herself. She reports some pain over her ribs on her left side when breathing in deeply. Objective Objective: Intake & Output 09/07 1600 09/07 0800 09/07 0000 Intake Total 300 200 Output Total 2750 Balance -2450 200 Intake, Oral 300 200 Output, Urine 2750 Current Medications Sig/Renee Start time Last Medication Dose Route Stop Time Status Admin Acetaminophen 650 MG Q6P PRN 09/05 0745 AC PO Acetazolamide 250 MG ONCE ONE 09/07 1045 DC 09/07 PO 09/07 1046 1140 Albuterol Sulfate 3 ML TID 09/04 2200 AC 09/07 INH 0923 Ceftriaxone Sodium 1,000 MG DAILY@1530 09/05 1530 AC 09/06 IV 1836 Enoxaparin Sodium 40 MG DAILY 09/05 1000 AC 09/07 SC 1011 Furosemide 40 MG .STK-MED ONE 09/06 1834 DC IV 09/06 1835 Methylprednisolone 60 MG DAILY@2200 09/05 2200 DC 09/06 IV 09/07 2201 2126 Oseltamivir Phosphate 75 MG BID 09/05 1023 AC 09/07 PO 09/09 1022 1010 Prednisone 40 MG ONCE ONE 09/07 1045 DC 09/07 PO 09/07 1046 1140 Laboratory Tests 09/07 09/07 1105 0703 Chemistry Sodium (137 - 145 mmol/L) 140 Potassium (3.5 - 5.1 mmol/L) 4.6 Chloride (98 - 107 mmol/L) 91 L Carbon Dioxide (22 - 30 mmol/L) 42 H Anion Gap (5 - 16) 7 BUN (7 - 17 mg/dL) 26 H Creatinine (0.5 - 1.0 mg/dL) 0.6 Estimated GFR (>60 ml/min) > 60 BUN/Creatinine Ratio (7 - 25 %) 43.3 H Hematology CBC w Diff NO MAN DIFF REQ MAN DIFF ORDERED WBC (4.8 - 10.8 /CUMM) 8.3 8.6 RBC (4.20 - 5.40 /CUMM) 5.09 4.91 Hgb (12.0 - 16.0 G/DL) 16.1 H 15.6 Hct (37 - 47 %) 50.1 H 49.0 H MCV (81.0 - 99.0 FL) 98.3 99.7 H MCH (27.0 - 31.0 PG) 31.7 H 31.8 H MCHC (33.0 - 37.0 G/DL) 32.2 L 31.9 L RDW (11.5 - 14.5 %) 14.6 H 15.0 H Plt Count (130 - 400 /CUMM) 206 MPV (7.4 - 10.4 FL) 9.7 Gran % (42.2 - 75.2 %) 81.3 H 90.5 H Lymphocytes % (20.5 - 51.1 %) 12.1 L 8.3 L Monocytes % (1.7 - 9.3 %) 6.4 1.1 L Eosinophils % (0 - 5 %) 0.1 0 Basophils % (0.0 - 2.0 %) 0.1 0.1 Absolute Granulocytes (1.4 - 6.5 /CUMM) 6.7 H 7.8 H Absolute Lymphocytes (1.2 - 3.4 /CUMM) 1.0 L 0.7 L Absolute Monocytes (0.10 - 0.60 /CUMM) 0.5 0.1 Absolute Eosinophils (0.0 - 0.7 /CUMM) 0 0 Absolute Basophils (0.0 - 0.2 /CUMM) 0 0 Normocytic RBCs VERIFIED Normochromic RBCs VERIFIED PE: Gen apperance: AOx3, cooperative, no evidence of acute distress CV: regular rhythym and rate, normal S1&S2, No MRG Pulm: crackles present over the posterior lung alonso at the bases Extremities: pitting edema present 1+ bilaterally Psych: pressured speech, flight of ideas thought process, no SI/HI or thoughts of self harm Assessment/Plan Assessment: Ms. Patino is a 67 year old female with a pmhx of COPD, Parathyroid Goiter, and Chronic sinusitis who presented to the ED with bilateral leg swelling, SOB and dry cough. She was subsequently admitted to the hospital and treated for influenza a and strep. pneumoniae infection. She also was treated for heart failure and given furosemide which subsequently lead to decreased peripheral edema. Over the duration of her hospitalization her breathing has improved significantly with treatment of the infectious agents, HF and continous oxygen supplementation. She has been followed by Dr. López. Plan: Problem list: 1. Strep pneumoniae infection 2. Influenza A 3. COPD 4. CHF 5. Rib pain 6. Mood disorder #Strep pneumoniae infection:Patient was found to be positive for strep pneumoniae bacterial antigen. This is most likely CAP contributing to her difficulty breathing. WBC count has decreased and PE indicates improvement, and although crackles are present over the bases of her lungs, air movement is much improved. She is being treated by Dr. López. -Continue Abx therapy -Continue Supplemental oxygen #Influenza A infection: Ms. Patino tested positive for influenza a on nasal swab. This is another contributing factor in her difficulty in breathing. -Continue Oseltamivir -Prednisone 40 mg taper #CHF: Patient presented with pitting edema which has improved after furosemide. This is likely due to cor pulmonale as she has a long standing history of COPD. She was seen by cardiology and found to have an EF >55%. Also EKG and troponins have been tested and have not indicated an acute WI. -F/u with cardiology upon discharge -continue to evaluate for peripheral edema -compression stockings #Rib pain: Patient has reported rib pain that occurs when coughing or breathing deeply. This is likely due to costochondritis. -Pain control with Acetaminophen #Mood disorder: Patient scored 15 on PHQ-9, indicating possible moderately severe depression. She denies any SI, HI or self harm thoughts. She denied an eval by psych however she is more receptive to talking to someone today. She also has some pressured speech and flight of idea thought process, indicating a kieran may have been contributed by IV steroids or may be due to underlying psych illness such as bipolar 1 or 2. -Psych consultation DVT ppx: enoxaparin heart healthy diet Full code
[2017-09-07] MEDS ORDERED: CEFUROXIME500 MG PO (14:57)
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
[2017-09-08 06:26] VITALS: BP 132/70
--- NOTE | 2017-09-08 07:58 | PN- Housestaff ---
Subjective Follow-up For: Influenza, Streptococcus pneumoniae pneumonia, heart failure, anxiety Subjective: No overnight events. The patient has significant anxiety and stress in her life. Psychiatry evaluated her yesterday and she refuses treatment. She is worried about the cost of treatment especially if she can't work. She also has issues with her family that cause her to be stressed. Her breathing has improved and she has no other complaints. Review of Systems Constitutional: Reports: no symptoms. EENTM: Reports: no symptoms. Cardiovascular: Reports: no symptoms. Respiratory: Reports: no symptoms. Gastrointestinal: Reports: no symptoms. Genitourinary: Reports: no symptoms. Musculoskeletal: Reports: no symptoms. Skin: Reports: no symptoms. Neurological/Psychological: Reports: see HPI. Hematologic/Endocrine: Reports: no symptoms. Immunologic/Allergic: Reports: no symptoms. Objective Last 24 Hrs of Vital Signs/I&O Vital Signs Date Time Temp Pulse Resp B/P B/P Pulse O2 O2 Flow FiO2 Mean Ox Delivery Rate 09/08 06 98.2 76 16 132/70 96 Room Air 09/08 0000 Nasal 2.0L Cannula 09/07 1930 92 Nasal 2.0L Cannula 09/07 1420 97.7 78 20 128/64 92 Nasal Cannula 09/07 0924 94 Nasal 2.0L Cannula 09/07 0800 94 Nasal 2.0L Cannula Intake & Output 09/08 0800 09/08 0000 09/07 1600 Intake Total 300 200 800 Output Total 1400 Balance -1100 200 800 Intake, Oral 300 200 800 Output, Urine 1400 Physical Exam General Appearance: Alert, Oriented X3, Cooperative, No Acute Distress Cardiovascular: Regular Rate, Normal S1, Normal S2 Lungs: mild wheezing Abdomen: No Tenderness, No Hepatospenomegaly, No Masses Extremities: 1+ pitting edema Current Medications: Current Medications Sig/Renee Start time Last Medication Dose Route Stop Time Status Admin Acetaminophen 650 MG Q6P PRN 09/05 0745 AC PO Acetazolamide 250 MG ONCE ONE 09/07 1045 DC 09/07 PO 09/07 1046 1140 Albuterol Sulfate 3 ML TID 09/04 2200 AC 09/07 INH 1925 Ceftriaxone Sodium 1,000 MG DAILY@1530 09/05 1530 DC 09/06 IV 1836 Cefuroxime Sodium 500 MG Q12 09/07 1454 AC 09/07 PO 2144 Enoxaparin Sodium 40 MG DAILY 09/05 1000 AC 09/07 VT 1011 Methylprednisolone 60 MG DAILY@2200 09/05 2200 DC 09/06 IV 09/07 2201 2126 Oseltamivir Phosphate 75 MG BID 09/05 1023 AC 09/07 PO 09/09 1022 2144 Prednisone 40 MG ONCE ONE 09/07 1045 DC 09/07 PO 09/07 1046 1140 Last 24 Hrs of Lab/Lennox Results Last 24 Hrs of Labs/Mics: Laboratory Tests 09/07/17 1105: CBC w Diff NO MAN DIFF REQ, RBC 5.09, MCV 98.3, MCH 31.7 H, MCHC 32.2 L, RDW 14.6 H, Gran % 81.3 H, Lymphocytes % 12.1 L, Monocytes % 6.4, Eosinophils % 0.1, Basophils % 0.1, Absolute Granulocytes 6.7 H, Absolute Lymphocytes 1.0 L, Absolute Monocytes 0.5, Absolute Eosinophils 0, Absolute Basophils 0 Assessment/Plan Assessment: Ms. Patino is a 67-year-old female with past medical history of COPD who presents with shortness of breath and leg swelling. Problem list: 1. Acute hypoxic respiratory failure 2. Acute decompensated heart failure 3. Streptococcus pneumoniae pneumonia 4. Influenza A 5. Thrombocytopenia, resolved 6. Costochondritis 7. Anxiety complicated by possible personality disorder #Acute hypoxic respiratory failure: The patient presented with positive JVD and significant swelling consistent with heart failure complicated by influenza A infection with superimposed pneumonia. EKG and troponins x3 were negative. Chest CT showed moderate emphysema and is 0.4 cm left lower lobe pulmonary nodule. Her breathing is improved. TTE was normal. -I's and O's, daily weights -Prednisone taper -Appreciate cardiology recommendations -Cefuroxime, day 5 -Oseltamivir, day 4 #Anxiety complicated by possible personality disorder: Patient was noted to be complaining of depressed mood. Depression screening showed that she scored for moderately severe depression. Psychiatry evaluated and believes she has anxiety with traits of borderline, narcissistic, and dependent personality disorders. She has refused all medications and is very worried about the cost of therapy. -clerical and administrative workers consult, working with oxygen -Outpatient psychiatric referral if amenable #Thrombocytopenia: Resolved -Continue to monitor for bleeding #Costochondritis: Patient complaining of rib pain associated with coughing and has tenderness to palpation of the ribs. -Pain control #Chronic medical problems: -Continue home medications DVT prophylaxis with enoxaparin CHF diet Full code Problem List: 1. Streptococcus pneumoniae 2. Influenza A Pain Ratin Pain Location: no Pain Goal: Remain pain free Pain Plan: see a/p Tomorrow's Labs & Rationales: no
--- NOTE | 2017-09-08 07:58 | Discharge Summary ---
See Addendum Visit Information Visit Dates Admission Date: 09/04/17 Discharge Date: 09/08/17 Hospital Course Course Attending Physician: Rene ZABALA,Alan Diaz Primary Care Physician: Holden Gutierrez MD Hospital Course: Ms. Patino is a 67-year-old female with past medical history of end-stage COPD who presented with shortness of breath and leg swelling. On presentation, vital signs were T 97.6, HR 105, RR 18, BP 136/82, saturating 80% on room air. This improved to 96% on 3 L nasal cannula. Laboratories were significant for platelets 89, hematocrit 50.1, MCV 100.0, chloride 95, come dioxide 40, BNP 311. She was treated with methylprednisone, ceftriaxone, and azithromycin in the emergency room. She was admitted to general medicine and treated for the following problems: 1. Acute hypoxic respiratory failure 2. Acute decompensated heart failure 3. Streptococcus pneumoniae pneumonia 4. Influenza A 5. Thrombocytopenia 6. Costochondritis 7. Anxiety complicated by possible personality disorder #Acute hypoxic respiratory failure: The patient presented with positive JVD and significant swelling consistent with heart failure complicated by influenza A infection with superimposed streptococcal pneumonia. EKG and troponins x3 were negative. Chest CT showed moderate emphysema and a 0.4 cm left lower lobe pulmonary nodule. She was treated with antiviral, antibiotics, and diuresis. Cardiology was consulted. She should have follow-up in [address] Her breathing is improved. TTE was normal. She should continue the cefuroxime, oseltamivir, and steroid taper. She should follow-up with pulmonology. #Anxiety complicated by possible personality disorder: Patient was noted to be complaining of depressed mood. Depression screening showed that she scored for moderately severe depression. Psychiatry evaluated and believes she has anxiety with traits of borderline, narcissistic, and dependent personality disorders. She has refused all medications and is very worried about the cost of therapy. She has been given referral to outpatient psychiatry. #Thrombocytopenia: Noted on admission labs. It resolved spontaneously. #Costochondritis: Patient complained of rib pain associated with coughing and had tenderness to palpation of the ribs. Her pain was well-controlled. #Chronic medical problems: Her other home medications were continued. Allergies: Coded Allergies: NO KNOWN ALLERGIES (09/13/11) Disposition Summary Disposition Principal Diagnosis: 1. Acute hypoxic respiratory failure Additional Diagnosis: 2. Acute decompensated heart failure 3. Streptococcus pneumoniae pneumonia 4. Influenza A 5. Thrombocytopenia 6. Costochondritis 7. Anxiety complicated by possible personality disorder Discharge Disposition: home or self care Discharge Instructions General Discharge Information Code Status: Full Code Patient's Diet: Regular diet Patient's Activity: As tolerated Follow-Up Instructions/Appts: Please take all medications as directed. Please follow-up with pulmonology and psychiatry. Please adhere to oxygen therapy. Please abstain from all smoking including marijuana. Medications at Discharge Discharge Medications: Continue taking these medications: Mometasone Furoate (Asmanex) 220 MCG (60 DOSES) AER.POW.BA Qty = 3 Tiotropium Hamlin (Spiriva) 18 MCG CAP.W.DEV 1 Capsule Inhale through mouth DAILY Qty = 90 Levothyroxine Sodium (Levothyroxine Sodium) 25 MCG TABLET 1 Tablet ORAL DAILY Qty = 30 Start taking the following new medications: Cefuroxime Axetil (Cefuroxime) 500 MG TABLET 1 Tablet ORAL TWICE DAILY Qty = 4 No Refills Instructions: . Oseltamivir Phosphate (Tamiflu) 75 MG CAPSULE 75 Milligram ORAL TWICE DAILY Qty = 2 No Refills Instructions: . Potassium Chloride (K-Tab ER) 20 MEQ TABLET.ER 2 Tablet ORAL TUE/ Qty = 60 No Refills Instructions: . Furosemide (Furosemide) 40 MG TABLET 1 Tablet ORAL TUE/ Qty = 30 No Refills Instructions: . Acetazolamide (Acetazolamide) 250 MG TABLET 1 Tablet ORAL WED Qty = 30 No Refills Instructions: . Prednisone (Prednisone) 10 MG TABLET 1 Tablet ORAL DAILY Qty = 26 No Refills Instructions: Please take 40mg from 09/09/17-09/10/17, 30mg from 09/11/17-09/13/17, 20mg from 09/14/17-09/16/17, and 10mg from 09/17/17-09/19/17 Copies To: Rene ZABALA,Alan Diaz; Brody ZABALA,[facility]; Johnny Hodge APRN; Matt ZABALA,Holden Smith
[2017-09-08] MEDS ORDERED: FUROSEMIDE40 M1 PO ×2 (09:43→10:53)
[2017-09-08] MEDS ORDERED: ACETAZOLAMIDE250 M1 PO ×2 (09:43→10:53)
[2017-09-08] MEDS ORDERED: PREDNISONE10 M2 PO ×2 (09:43→10:53)
[2017-09-08] MEDS ORDERED: K-TAB ER20 MEQ PO ×2 (09:43→10:53)
[2017-09-08] MEDS ORDERED: CEFUROXIME500 MG PO (10:53)
[2017-09-08] MEDS ORDERED: TAMIFLU75 M1 PO (10:53)
[2017-09-08 14:26] VITALS: BP 130/75
[2017-09-08 22:00] VITALS: BP 122/80
[2017-09-09 06:15] VITALS: BP 122/60
--- NOTE | 2017-09-09 07:36 | PN- Housestaff ---
See Addendum Subjective Follow-up For: AHRF Subjective: No overnight events. Patient did not leave yesterday because the portable oxygen tank was not delivered. This morning, she is complaining that people are asking her about her mental health and she does not want to take additional pills. Review of Systems Constitutional: Reports: no symptoms. EENTM: Reports: no symptoms. Cardiovascular: Reports: no symptoms. Respiratory: Reports: see HPI. Gastrointestinal: Reports: no symptoms. Genitourinary: Reports: no symptoms. Musculoskeletal: Reports: no symptoms. Skin: Reports: no symptoms. Neurological/Psychological: Reports: see HPI. Hematologic/Endocrine: Reports: no symptoms. Immunologic/Allergic: Reports: no symptoms. Objective Last 24 Hrs of Vital Signs/I&O Vital Signs Date Time Temp Pulse Resp B/P B/P Pulse O2 O2 Flow FiO2 Mean Ox Delivery Rate 09/09 0615 98.6 72 20 122/60 94 Nasal Cannula 09/09 0000 92 Nasal 1.0L Cannula 09/08 2200 98.1 70 21 122/80 92 Nasal Cannula 09/08 1943 95 Nasal 2.0L Cannula 09/08 1600 94 Nasal 1.0L Cannula 09/08 1426 98.0 81 21 130/75 94 Nasal 1.0L Cannula 09/08 0955 95 Nasal 2.0L Cannula Intake & Output 09/09 0800 09/09 0000 09/08 1600 Intake Total 330 140 250 Output Total 0 Balance 330 140 250 Intake, Oral 330 140 250 Output, Urine 0 Physical Exam General Appearance: Alert, Oriented X3, Cooperative, No Acute Distress Cardiovascular: Regular Rate, Normal S1, Normal S2 Lungs: mild wheezing Abdomen: Normal Bowel Sounds, Soft, No Tenderness Extremities: 1+ pitting edema Current Medications: Current Medications Sig/Renee Start time Last Medication Dose Route Stop Time Status Admin Acetaminophen 650 MG Q6P PRN 09/05 0745 AC PO Albuterol Sulfate 3 ML TID 09/04 2200 AC 09/08 INH 1938 Cefuroxime Sodium 500 MG Q12 09/07 1454 AC 09/08 PO 2032 Enoxaparin Sodium 40 MG DAILY 09/05 1000 AC 09/08 SC 0819 Oseltamivir Phosphate 75 MG BID 09/05 1023 AC 09/08 PO 09/09 [id number] Last 24 Hrs of Lab/Lennox Results Last 24 Hrs of Labs/Mics: Laboratory Tests 09/08/17 1100: pH 7.35, pCO2 62 *H, pO2 66 L, HCO3 94 H, ABG O2 Sat (Measured) 93.0 L, Carboxyhemoglobin 1.3 L, O2 Concentration % 2L, O2 Delivery Method NC, Phlebotomy Draw Site LEFT RADIAL 09/08/17 0814: Anion Gap 11, Estimated GFR > 60, BUN/Creatinine Ratio 27.5 H Assessment/Plan Assessment: Ms. Patino is a 67-year-old female with past medical history of COPD who presents with shortness of breath and leg swelling. Problem list: 1. Acute hypoxic respiratory failure 2. Acute decompensated heart failure 3. Streptococcus pneumoniae pneumonia 4. Influenza A 5. Thrombocytopenia, resolved 6. Costochondritis 7. Anxiety complicated by possible personality disorder #Acute hypoxic respiratory failure: The patient presented with positive JVD and significant swelling consistent with heart failure complicated by influenza A infection with superimposed pneumonia. EKG and troponins x3 were negative. Chest CT showed moderate emphysema and is 0.4 cm left lower lobe pulmonary nodule. Her breathing is improved. TTE was normal. She was supposed to be discharged yesterday but there are issues getting the portable oxygen tank. -I's and O's, daily weights -Prednisone taper -Appreciate cardiology recommendations -Cefuroxime, day 6 -Oseltamivir, day 5 #Anxiety complicated by possible personality disorder: Patient was noted to be complaining of depressed mood. Depression screening showed that she scored for moderately severe depression. Psychiatry evaluated and believes she has anxiety with traits of borderline, narcissistic, and dependent personality disorders. She has refused all medications and is very worried about the cost of therapy. -general distillery worker consult, working with oxygen -Outpatient psychiatric referral if amenable #Thrombocytopenia: Resolved -Continue to monitor for bleeding #Costochondritis: Patient complaining of rib pain associated with coughing and has tenderness to palpation of the ribs. -Pain control #Chronic medical problems: -Continue home medications DVT prophylaxis with enoxaparin CHF diet Full code Problem List: 1. Anxiety 2. Streptococcus pneumoniae 3. Influenza A Pain Ratin Pain Location: no Pain Goal: Remain pain free Pain Plan: see a/p Tomorrow's Labs & Rationales: no
[2017-09-09 14:32] VITALS: BP 120/70
--- NOTE | 2017-09-09 15:08 | PN- Psychiatry ---
Assessment/Plan Impression: The patient would benefit from talk therapy, at a minimum, and has been given a card for [facility]. She is non-committal, despite her supportive sister, Annika, encouraging her to accept an intake appointment. The patient is opposed to psychotropic medications, despite her admitted use of cannabis. Although we had suggested consideration of an antidepressant at our initial visit, we wish to withdraw that recommendation, due to increased hyperverbalization. She is not in distress, and I do not have enough evidence to diagnose bipolar disorder, but erring on the side of caution, we should avoid antidepressants at this time. Please continue to encourage her to call and make an appointment for [facility]. Suggestion: 1. No psychotropic interventions at this time, including antidepressants. 2. Encourage the patient to make an appointment with [facility], at [phone]. 3. The patient is to avoid cannabis and tobacco. The patient is not suicidal, not psychotic, nor delirious and not manic. She is safe to discharge to home from a psychiatric viewpoint. Psychiatry is signing off. Subjective Subjective: Alert and oriented Denies AH and VH Denies SI or HI Pressured speech Review of Systems Neurological/Psychological: Denies: no symptoms. Objective Last 24 Hrs of Vital Signs/I&O Vital Signs Date Time Temp Pulse Resp B/P B/P Pulse O2 O2 Flow FiO2 Mean Ox Delivery Rate 09/09 1432 98.2 68 22 120/70 94 Nasal Cannula 09/09 0858 93 Nasal 1.0L Cannula 09/09 0800 94 Nasal 2.5L Cannula 09/09 0615 98.6 72 20 122/60 94 Nasal Cannula 09/09 0000 92 Nasal 1.0L Cannula 09/08 2200 98.1 70 21 122/80 92 Nasal Cannula 09/08 1943 95 Nasal 2.0L Cannula 09/08 1600 94 Nasal 1.0L Cannula Intake & Output 09/09 1600 09/09 0800 09/09 0000 Intake Total 500 330 140 Output Total 0 Balance 500 330 140 Intake, Oral 500 330 140 Output, Urine 0 Patient 136 lb Weight Physical Exam: Not performed Physical Exam General Appearance: alert, awake, energized Neurologic/Psychiatric: awake, alert, oriented x 3, normal gait Current Medications: Current Medications Sig/Renee Start time Last Medication Dose Route Stop Time Status Admin Acetaminophen 650 MG Q6P PRN 09/05 0745 AC PO Albuterol Sulfate 3 ML TID 09/04 2200 AC 09/09 INH 1327 Cefuroxime Sodium 500 MG Q12 09/07 1454 AC 09/09 PO 0832 Enoxaparin Sodium 40 MG DAILY 09/05 1000 AC 09/09 SC 0833 Oseltamivir Phosphate 75 MG BID 09/05 1023 DC 09/09 PO 09/09 1022 0833 Prednisone 40 MG ONCE ONE 09/09 1500 UNVr PO 09/09 1501 Results Last 24 Hrs of Labs/Mics: Laboratory Tests 09/08 09/08 1100 0814 Blood Gas pH (7.35 - 7.45 PH) 7.35 pCO2 (35 - 45 TORR) 62 *H pO2 (80 - 100 TORR) 66 L HCO3 (21 - 28 MEQ/L) 94 H ABG O2 Sat (Measured) (>96.0 %) 93.0 L Carboxyhemoglobin (1.5 - 5.0 %) 1.3 L O2 Concentration % 2L O2 Delivery Method NC Chemistry Sodium (137 - 145 mmol/L) 141 Potassium (3.5 - 5.1 mmol/L) 4.1 Chloride (98 - 107 mmol/L) 98 Carbon Dioxide (22 - 30 mmol/L) 32 H Anion Gap (5 - 16) 11 BUN (7 - 17 mg/dL) 22 H Creatinine (0.5 - 1.0 mg/dL) 0.8 Estimated GFR (>60 ml/min) > 60 BUN/Creatinine Ratio (7 - 25 %) 27.5 H Miscellaneous Phlebotomy Draw Site LEFT RADIAL
== END 2017-09-09 16:40 | DRG 189 ==
LOC: ERH 13:11 → 2NA 14:34 → ERHI 14:34 → ENRESERV 16:32 → ENTRNSPT 17:09 → 2NA 17:23 → CMPTRNSPT 17:39 → ENPENDDIS 09-08 11:14 → ENTRNSPT 09-09 16:22 → CMPTRNSPT 09-09 16:36 → 2NA 09-09 16:40
PROVIDERS: Internal Medicine; Physician Assistant Medical
DX: J96.22 Acute and chronic respiratory failure with hypercapnia (principal); J11.08 Influenza due to unidentified influenza virus with specified pneumonia; J15.4 Pneumonia due to other streptococci; R64 Cachexia; J44.1 Chronic obstructive pulmonary disease with (acute) exacerbation; D69.6 Thrombocytopenia, unspecified; I27.29 Other secondary pulmonary hypertension; D75.1 Secondary polycythemia; J96.12 Chronic respiratory failure with hypercapnia; Z99.81 Dependence on supplemental oxygen; F12.90 Cannabis use, unspecified, uncomplicated; F17.210 Nicotine dependence, cigarettes, uncomplicated; F32.9 Major depressive disorder, single episode, unspecified; Z91.19 Patient's noncompliance with other medical treatment and regimen; F41.9 Anxiety disorder, unspecified; F60.3 Borderline personality disorder; Z68.21 Body mass index [BMI] 21.0-21.9, adult; T38.0X5A Adverse effect of glucocorticoids and synthetic analogues, initial encounter; M94.0 Chondrocostal junction syndrome [Tietze]
CPT/HCPCS: 2NAP; 36415; 36592; 71045; 82436; 87040; 87449; 87450; 87804; 87804-59; 93005; 93010; 93306; 93970; 96374; 99233; J0456; J0696; J1650; J1940; J2930; J7060